=== PATIENT | female | born 1950 | race Caucasian/White ===

== ENCOUNTER 2018-02-02 08:30 | Outpatient (RCR) | payer MEDICARE, OTHER, SELFPAY ==
--- NOTE | 2018-02-02 09:10 | BH.SGPN.GN ---
Behaviors/Verbalizations/Mental Status: [] Pt eye contact fair, casually dressed, motor activity appropriate, speech normal rate and tone, mood anxious, congruent affect, thoughts linear and logical, no evidence of delusions or hallucinations. Reviewed client?s symptom tracker, no signs of suicidal ideation, plan, or intent as of today. Client Response/Progress/Benefit: [] Client shared she really appreciated the other group members being open about her problems and stressors because client could relate to a lot of the problems or issues others are going through. Client reported feeling extremely anxious given today is her first day in the IOP program. Client reported she never thought she could do in IOP program because the idea of group therapy makes her anxious, however recognizes she needed to take some steps forward to help her get better. Client seemed benefit from support from peers. No progress noted given today is patient's first day in program. Client to continue IOP level of care to decrease depression, improve daily functioning and prevent decompensation. Narrative Note: []
--- NOTE | 2018-02-02 10:22 | BH.SGPN.GN ---
Behaviors/Verbalizations/Mental Status: [Client eye contact fair, casually dressed, motor activity WNL - at times appearing restless AEB shaking leg, speech normal rate and tone - soft when speaking to the group at large, mood anxious, congruent affect, thoughts linear and logical, no evidence of delusions or hallucinations.] Client Response/Progress/Benefit: [Client new to IOP program and appeared anxious about being in the large group setting. She did well to actively listen to the discussion regarding the difficulties in manage change and emotions associated with the change process. CLient often nodded as fellow participants discussed their own emotional experiences such as fear, worry, feeling torn, or exhaustion when dealing with change. She noted that for her change is a high anxiety experience and shared fear of the unknown as her most common feeling associated with change. She displayed progress in her ability to engage with the group as the session progressed and Client volunteered to participate in the charade activity. Client benefitted from the supportive group environment as well as the psychoeducation provided. CLient recommended continued IOP tx to prevent decompensation and aid client in developing healthy strategies for improving mental health sx management.] Narrative Note: []
--- NOTE | 2018-02-02 11:29 | BH.SGPN.GN ---
Behaviors/Verbalizations/Mental Status: [Client eye contact remained clear and consistent, casually dressed, motor activity WNL, speech normal rate and tone, mood anxious, euthymic, congruent affect, thoughts linear and logical, no evidence of delusions or hallucinations. ] Client Response/Progress/Benefit: [Client responded well to session, displayed increased levels of comfort in engaging with the group compared to previous session. She was an attentive listener throughout group discussion. Client appeared to most benefit from the activity portion of session as evidenced by increased communication and involvement. Client worked collaboratively with the group to identify goals and problem solve strategies for adjusting to the changing environment or setbacks in accomplishing the group goal. Client benefitted from processing discussion in which clients made connections between the interventions and coping techniques used in the activity with their own lives. She indicated that she would benefit from challenging her self doubt and use of catastrophizing when facing the unknown. Client progress in ability to connect with the group and information discussed. Recommended continued IOP tx to prevent decompensation and improve mental health insight and awareness.] Narrative Note: []
--- NOTE | 2018-02-04 09:05 | BH.SGPN.GN ---
Behaviors/Verbalizations/Mental Status: []Client alert and oriented, neatly dressed and groomed. Eye contact good. Motor activity appropriate. Speech within normal limits. Affect constricted, mood anxious. Thoughts linear, logical, no signs of hallucinations or delusions. Reviewed clients symptom tracker, no risk for suicidal ideation, plan, or intent as of 02/04/18. Client Response/Progress/Benefit: []Client responded well to session, quiet, but nodding to comments made by peers and receptive to positive statements. Client reports feeling hopeful, positive, and anxious today as client shared seeing others' progress in IOP has given her hope for her own progress. However, client is anxious about not knowing coping skills and is worried she will not know how to manage her symptoms. The group gave client feedback, validating client's first week experience and told client to be patient the coping skills will come. Client stated hearing other people's stories and knowing she is not alone has been helpful so far in client's treatment. Client shared she has been struggling with anxiety and depression for a while and client reported belief her marriage issues contribute to her symptoms. Client appeared to benefit from gaining supportive feedback, words of encouragement, and validation from peers. Progress limited as it is client's first week in IOP, but client appears to be increasing comfort with peers and in the group setting. Client to continue IOP to prevent decompensation and reduce intensity of symptoms.
--- NOTE | 2018-02-04 10:30 | BH.SGPN.GN ---
Behaviors/Verbalizations/Mental Status: [] Pt eye contact good, casually dressed, motor activity appropriate, speech normal rate and tone, mood euthymic, congruent affect, thoughts linear and intact, no evidence of delusions or hallucinations. Client Response/Progress/Benefit: []Pt listened attentively to others and at times shared her thoughts and ideas with group. Pt appeared to connect with peers comments about change being difficult AEB pt nodding her head. Pt initially struggled with identifying barriers to making change, but with assistance was able to note several. Pt reported her barriers to change include: negative thinking, toxic relationship, poor boundaries, anger, isolation, and passive behavior. Pt identified difficulty setting boundaries to be the most problematic issue. Pt seemed to benefit from increased self-awareness of potential barrier that can get in way of progress. Narrative Note: []
--- NOTE | 2018-02-04 11:30 | BH.SGPN.GN ---
Behaviors/Verbalizations/Mental Status: [] Pt eye contact good, casually dressed, motor activity appropriate, speech normal rate and tone, mood anxious, congruent affect, thoughts linear and intact, no evidence of delusions or hallucinations. Client Response/Progress/Benefit: []Pt listened attentively to others and elicited help from others. Pt initially struggled with identifying what she could do for her 30 day plan, but eventually was able to identify reducing negative thinking. Pt reported her first goal is to identify at least 3 positives about herself daily. Pt shared another small goal is to identify 3 positives from her day. Pt shared her significant other tends to be extremely negative, so wants to limit the negativity by setting a boundary with him. Pt seemed to benefit from getting feedback from peers as well as identifying small goals to focus on throughout 30 day plan. Narrative Note: []
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
--- NOTE | 2018-02-04 14:59 | BH.MTP ---
Master Treatment Plan - Patient Information Program Physician:: Dr. Cook Primary Therapist:: Laura Colon - Psychiatric Diagnoses Psychiatric Diagnoses:: Major depressive disorder recurrent severe. Anxiety unspecified. Remote history of anorexia Diagnosis Code(s):: F 33.2 - Estimated LOS Estimated LOS (in weeks):: 6 Problem/Goal #1 - Problem/Goal #1 Stated Goal:: Client will reduce depression, feelings of hopelessness, and suicidal ideation due to Major Depressive Disorder through the Intensive Outpatient Program. Description of Barriers: Pt's distorted thought patterns, guilt for taking time for herself, limited support system, low self-confidence, and ruminations could be potential barriers to treatment. Functional Impact: Pt's mental health symptoms are impacting pt's social and familial functioning. Pt's anhedonia, lack of energy, and isolative behaviors impact her social functioning due to not engaging in the things she used to enjoy doing. Pt's increased irritability, negative thinking, and ruminations impacting her marriage. Pt not functioning at baseline. Goal Relevant Strengths/Supports: Pt is intelligent, hard working, and motivated to get better. - Objectives Objective #1 Stated Objective: Client will identify and replace 2-3 negative thinking patterns that contribute to depressive symptoms. Interventions: Assist the client in identifying, challenging, and replacing dysfunctional thoughts with positive self-enhancing thoughts. Discharge Criteria: Client will have achieved this goal when can identify at least 2 negative thinking patterns, replace thoughts with rational thoughts, and combat suicidal ideation. Target Date: 03/16/18 Review Date: 03/02/18 Objective #2 Stated Objective: Pt will decrease depressive symptoms AEB pts score on the DSM 5 cross-cutting measure. Interventions: Through groups and individual therapy, pt will be provided with education on cognitive distortions, mistaken beliefs, and identifying and combating negative self-talk. Therapist will assist pt with getting back into the activities she once enjoyed as well as increasing healthy coping strategies. Discharge Criteria: Pt will have met this goal when pts score on the DSM 5 cross cutting measure for depression has been decreased and daily functioning has improved per pt's report. Target Date: 03/16/18 Review Date: 03/02/18 Problem/Goal #2 - Problem/Goal #2 Stated Goal:: Stabilize anxiety level while increasing ability to function on daily basis. Description of Barriers: Pt's distorted thought patterns, guilt for taking time for herself, limited support system, low self-confidence, and ruminations could be potential barriers to treatment. Functional Impact: Pt's mental health symptoms are impacting pt's social and familial functioning. Pt's anhedonia, lack of energy, and isolative behaviors impact her social functioning due to not engaging in the things she used to enjoy doing. Pt's increased irritability, negative thinking, and ruminations impacting her marriage. Pt not functioning at baseline. Goal Relevant Strengths/Supports: Pt is intelligent, hard working, and motivated to get better. - Objectives Objective #1 Stated Objective: Client will learn and utilize 2-3 healthy coping strategies to manage anxious symptoms. Interventions: Therapist will assist client in learning internal coping strategies to manage anxious symptoms, along with helping client identify triggers. Discharge Criteria: Client will have achieved this goal when can verbalize and has practiced at least 2 healthy coping strategies. Target Date: 03/16/18 Review Date: 03/02/18 Objective #2 Stated Objective: Pt will decrease anxious symptoms AEB pts score on the DSM 5 cross-cutting measure. Interventions: Through groups and individual therapy, pt will be provided with education on anxious thought patterns, increased awareness to triggers, and learning calming/relaxation skills. Therapist will assist pt with getting back into the activities she once enjoyed as well as increasing healthy coping strategies. Discharge Criteria: Pt will have met this goal when pt's score for anxiety has decreased on the DSM 5 cross-cutting measure and daily functioning has improved per pt's report. Target Date: 03/16/18 Review Date: 03/02/18
--- NOTE | 2018-02-06 09:03 | BH.SGPN.GN ---
Behaviors/Verbalizations/Mental Status: [] Pt eye contact fair, casually dressed, motor activity restless, speech normal rate and tone, mood anxious, congruent affect, thoughts linear and logical, no evidence of delusions or hallucinations. Reviewed client?s symptom tracker, no signs of suicidal ideation, plan, or intent as of today. Client Response/Progress/Benefit: []Pt shared she is a embarrassed with the way she acted last night with her . Pt reported when watching a movie with her she was trying to engage him in conversation, but he told her he was reading and didn't want to talk. Pt shared she became upset, left the room and didn't talk to him the rest of the night. Pt reported she recognizes she was overreacting, but reports her feelings were hurt however didn't communicate that in the best way. Pt shared this morning she meditated which helped her feel peaceful and had a positive effect on the rest of the morning with her . Pt continues to struggle with managing her emotions in the moment, which tends to have negative impact on relationship. Pt to continue IOP level of care to stabilize moods, improve daily functioning, and prevent decompensation. Narrative Note: []
--- NOTE | 2018-02-06 11:20 | BH.SGPN.GN ---
Behaviors/Verbalizations/Mental Status: []Client alert and oriented, neatly dressed and groomed. Eye contact good. Motor activity appropriate. Speech within normal limits. Affect congruent, mood anxious. Thoughts linear, logical, no signs of hallucinations or delusions. Client Response/Progress/Benefit: []Client responded well to session, participating in activity, providing good insight. Client stated it is important for her to put energy into the stressors in her control and accept the stressors out of her control as client recognizes when she focuses on stressors out of her control I never win. Client identified personal stressors in her control as managing emotions, depression, relationships, and anxiety. Client helped peers develop strategies for reducing stress including avoiding negative people, taking breaks and managing emotions, radical acceptance, making small goals, and challenging negative thoughts. Client appeared to benefit from gaining additional strategies to manage stress. Client to continue IOP to prevent decompensation and increase emotional regulation.
--- NOTE | 2018-02-06 11:44 | BH.NA ---
Physical Data - Height/Weight Height: 1.57 m Weight:: 55.338 kg Weight in Pounds: 122.0 lbs Current Medication Compliance - Medication Compliance Do you take your medication as prescribed?: No Do you need assistance with taking medication?: No Have you had side effects from medication?: No Nutritional History - Appetite Nutritional Instructions:: If client shows signs of a swallowing problem, weight change of 10 pounds or more in the last month, or is on a diabetic diet, the physician will review and request a dietitian consult, as appropriate. All unintentional weight loss will be referred to the physician for decision on need for dietitian consult. Describe your appetite:: Good Have you noticed a change in your eating habits lately?: No Additional nutritional information:: 1-2 caffeinated beverages daily Functional Assessment - Sleep Pattern Describe any problems with sleeping: Denies difficulty falling or staying asleep, but thinks she does not sleep long enough. - Activities Motor Activity:: Functional Sensory/Communication Assess - Hearing Problems Do you have any hearing problems?: Adequate - Communication Problems Do you have difficulty understanding what people are saying?: No Do you have trouble putting your thoughts into words or expressing what you want to say?: No Do people ever have trouble understanding what you say?: No What is your primary language?: Wolof Learning Assessment - Learning Barriers Learning Barriers:: Ready to learn Medical Problems/History - Metabolic Conditions Metabolic: Hypothyroidism - Pain Assessment Do you have acute or chronic pain?: No - Female Reproductive Do you think you may be ?: No Number of pregnancies:: 2 Number of children:: 2 Have you reached menopause?: Yes Do you have any history of breast disease?: No Substance Abuse - Substance Abuse Please describe substance abuse in the last 30 days:: Social ETOH use. Never tobacco or illicit substance use. Mental Status Summary - Mental Status Significant Findings/Observations on Appearance and Mood:: Linn is an alert and oriented 67-year-old female who has appropriate grooming and hygiene, and is casually dressed. She is cooperative with interview and makes good eye contact. Speech is clear and of normal rate and volume. Mild depression and anxiety. Appropriate affect. Logical associations and normal process. No symptoms of delusions. Denies hallucinations, SI, and HI. Suicide Assessment - Suicidal Ideation Are you currently or have you been suicidal in the past?: No Physician Notification: If Active suicidal thoughts/Will not contract for safety is checked, contact physician and document in the Physician Notification section below. Assault History/Potential - History of Assault Do you have a history of assaulting someone?: No Physician Notification: If yes, notify physician and document notification date and time below. Fall Risk Assessment - Age Age: 60-70 - Mental Status Mental Status: Willing & able to ask for assistance when needed - Physical Status Physical Status: No problems - Impairments Impairments: None - Elimination Elimination: Continent AND independent - Gait or Balance Gait or Balance: Walks independently - Hx of Falls History of falls in the past 6 months: No known history - Medications/Substances Psychotropics:: Antidepressants Medications/substances used within the past 24 hours or ordered to administer: 1-2 of the medications/substances listed above - Total Score Total Points:: 2 Physician Notification - Physician Notification Physician Notified: Angela Cook Method of Notification: Face to Face Comments: treatment planning discussion RN Summary of Impressions - Impressions Recommendations: Include psychiatric and medical issues, treatment planning recommendations, and discharge planning needs. Impression: General Medical Conditions: hypothyroid - Level of Care How do the client's current symptoms and functional deficits support need for this level of care?: Linn endorses increased mental health symptoms recently, she is unsure of the timeline of her decline, but notes that it started shortly after she retired. She is feeling that she lacks a sense of purpose. She has not responsed to individual counseling. Client describes low energy and decreased social engagement. She denies SI, but has had passive thoughts of , wishing that would not wake up some days. Linn feels that she has limited support and that most people will not understand her. IOP will promote gains and socialization while preventing further decompensation.
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
--- NOTE | 2018-02-06 14:22 | BH.DR.ITP ---
Initial Treatment Plan - Patient Information Visit Information: ADMISSION DATE: EXPECTED LOS: 4-6 weeks Diagnoses:: Major depressive disorder F 33.2 - Problems/Symptoms Problem #1:: Depression Symptom:: Sad mood, anhedonia, isolative behavior, decreased appetite, thoughts of Problem #2:: Anxiety Symptom:: Rumination
--- NOTE | 2018-02-09 09:05 | BH.SGPN.GN ---
Behaviors/Verbalizations/Mental Status: [Client maintained consistent eye contact, casually and appropriately dressed, motor activity appropriate, speech normal rate and tone, mood euthymic,anxious - client described feeling hopeful, affect congruent, thoughts linear and logical, no evidence of delusions or hallucinations. Therapist reviewed clients symptom tracker to assess for intensity of mental health symptoms and identify risk for suicide. No signs of suicidal ideation, plan, or intent to date.] Client Response/Progress/Benefit: [Client responded positively and receptively to session, engage throughout and asking questions of follow participants. She indicated appreciating the shared experience of the group that she is able to relate to many of the frustrations and symptoms follow participants were discussing throughout. Briefly discussed specifically relating to another participant who it discussed a strained relationship with her daughter and indicated struggling to come to terms with the fact that she and her own daughter have been estranged for the last 20 years. She went on to discuss having to make the realization that all she could do is reach out and help her daughter responds positively. Client further discussed having a good weekend despite an incident in which she and her had planned to go out to dinner however canceled plans shortly before they were supposed to leave. She shared that had initially really upset her and caused her to want to return to old ways of coping. She discussed telling her that he is depressed and isolating however she did well to take a step back and remind herself to calm down before reacting. Client indicated that instead she went to her room and meditated which she found to be helpful. She went on to share that later on her came to her and they were able to resolve things and ended up going out to dinner. Client continues to benefit from the structured and encouraging environment of the group and is beginning to display progress in her ability to apply some of the treatment concepts learned to her own mental health and daily living. Client recommended continued IOP to maintain stability and promote ongoing progress with mental health symptom management.] Narrative Note: []
--- NOTE | 2018-02-09 10:35 | BH.SGPN.GN ---
Behaviors/Verbalizations/Mental Status: []Client alert and oriented, neatly dressed and groomed. Eye contact good. Motor activity appropriate. Speech within normal limits. Affect constricted, mood anxious. Thoughts linear, logical, no signs of hallucinations or delusions. Client Response/Progress/Benefit: []Client responded well to session, participating when prompted. Client appeared to connect with the quote sharing, I have to remind myself that things arent impossible. Client shared coming to IOP seemed impossible, but client has been able to adjust. Client nodded in agreement with peers that having an impossible mindset can cause a person to not try strategies that might be helpful. Client participating in activity, passive and not sharing her ideas. Client reported I thought we werent going to be able to do it. Client stated using supports, different peoples ideas, and a positive outlook helped the group. Client appeared to benefit from recognizing the consequences of viewing situations as impossible. Client seems to be progressing with increasing awareness of warning signs and negative thoughts, but client continues to report difficulty managing anxiety and problems with her . Client to continue IOP to prevent decompensation and increase mood stability.
--- NOTE | 2018-02-09 11:32 | BH.SGPN.GN ---
Behaviors/Verbalizations/Mental Status: []Client alert and oriented, neatly dressed and groomed. Eye contact good. Motor activity appropriate. Speech within normal limits. Affect constricted, mood anxious. Thoughts linear, logical, no signs of hallucinations or delusions Client Response/Progress/Benefit: []Client responded well to session, participating in discussion. Client appeared to connect with growth versus fixed mindset, sharing Zoe had some of those fixed mindset thoughts which in the past has increased clients self-doubt. Client helped the group process the benefits of growth mindset and identified ways to work towards a growth mindset. Client reported she viewed IOP with a fixed mindset at first, but she has been able to challenge her perspective. Client able to identify internal and external resources that can help client overcome current barriers of anxiety, depression, and negative thinking such as positive self-talk, thought challenging, and setting small goals. Client appeared to benefit from learning about growth mindset and increasing awareness of internal and external resources that may help client overcome barriers. Client seems to be progressing as shown by her increased engagement and insight during group session, but client continues to struggle with a depressed mood and negative thoughts.
== END 2018-02-10 23:59 ==
LOC: BHIOP 08:30
PROVIDERS: Visit Provider Psychiatry & Neurology Psychiatry
DX: F33.2 Major depressive disorder, recurrent severe without psychotic features (principal); F41.9 Anxiety disorder, unspecified; Z79.899 Other long term (current) drug therapy; E03.9 Hypothyroidism, unspecified
CPT/HCPCS: H0035; 90853

== ENCOUNTER 2018-02-11 09:00 | Outpatient (RCR) | payer MEDICARE, OTHER, SELFPAY ==
--- NOTE | 2018-02-11 09:05 | BH.SGPN.GN ---
Behaviors/Verbalizations/Mental Status: []Client alert and oriented, neatly dressed and groomed. Eye contact good. Motor activity appropriate. Speech rambling at times. Affect full, mood euthymic, anxious. Thoughts linear, logical, no signs of hallucinations or delusions. Reviewed clients symptom tracker, no risk for suicidal ideation, plan, or intent as of 02/11/18. Client Response/Progress/Benefit: []Client responded well to session, able bounce back from a confrontational comment made by a peer. Client also provided supportive feedback to a peer who was struggling with loneliness. Client reports feeling happy but apprehensive today as client stated she is glad things are going better, but is waiting for the bad thing to happen and be worse. Client was receptive to discussion of challenging negative thoughts that keep client from enjoying the moment and progress. Client shared she and her have been getting along better since client started IOP. Client contributes the improved relationship to client managing her emotions better and using better communication. Client appeared to benefit from reflecting on positives and challenging negative thoughts in the moment. Client seems to be progressing with implementing coping strategies, but continues to struggle with challenging negative thoughts and managing anxiety.
--- NOTE | 2018-02-11 10:18 | BH.SGPN.GN ---
Behaviors/Verbalizations/Mental Status: [Client alert and orient x3, maintained good eye contact, casually dressed, motor activity WNL, speech normal rate and tone, mood euthymic and positive, anxious, affect congruent, thoughts linear and logical, no evidence of delusions or hallucinations. ] Client Response/Progress/Benefit: [Client responded well to session and was actively engaged throughout. She did well to participate in both the discussion and activity portions of the group. Client indicated identifying with the group topic of avoiding pitfalls and discussed how one's choices to manage negative life events can impact whether or not they fall into a pitfalls and ultimately have consequences on their overall mental health. Client shared connecting with fellow participants reflections of the various pitfalls that they tend to fall into and indicated I struggle with making healthy choices as ago along life's 'bumpy road'. She was an active participant in the activity portion and did well to identify how the various struggles encountered in the pitfalls activity relate to struggles with the face when attempting to avoid her own personal pitfalls. Client discussed specifically connecting with the need to take a step back and re-collect herself when shock hits or something unexpected occurs. She is displaying progress in her ability to internalize treatment concepts and is actively applying them to her daily life. Recommended continued maintain stability and further improve mental health management and consistency of skills application.] Narrative Note: []
--- NOTE | 2018-02-11 11:19 | BH.SGPN.GN ---
Behaviors/Verbalizations/Mental Status: [Client alert and orient x3, good eye contact, casual dress, motor activity WNL - at times restless and moving around in chair, speech normal rate and tone, mood euthymic and anxious, congruent affect, thoughts linear and logical, no evidence of delusions or hallucinations.] Client Response/Progress/Benefit: [Client receptive of session and actively engaged throughout. She did well to connect with the group discussion on identifying and practicing strategies for coping with and preventing personal pitfalls in order to better understand what strategies are most helpful for the individual. Client did well to reflect upon some of her own personal pitfalls and described struggling with catastrophizing, mind reading, poor boundaries, fixed mindset, guilt and feeling responsible for fixing others emotions, and negative thinking. She benefitted from brainstorming what potential coping strategies may be helpful in improving management of mental health sx and preventing falling into personal pitfalls. Client discussed that she believes setting up heathy boundaries, using her supports, and reminding herself that she deserves to get help will aid in preventing falling into pitfalls. Client showing progress in her ability to begin seeing the benefit of applying tx concepts and skills discussed and is improving with levels of insight. Client recommended continued IOP tx to prevent decompensation and continue to make gains in symptom management.] Narrative Note: []
--- NOTE | 2018-02-11 15:56 | BH.MDN ---
Multi-Disciplinary Note - Note 30-min Individual Time Started:: 12:20 Date: 02/11/18 Eye Contact:: Fair Motor Activity:: Appropriate Appearance:: Neat Speech:: Appropriate, Other - slow to speak at times Mood:: Euthymic, Anxious Affect:: Full, Congruent Thoughts:: Linear, Logical, No evidence of hallucinations/delusions noted Time Stopped:: 12:50
--- NOTE | 2018-02-13 09:05 | BH.SGPN.GN ---
Behaviors/Verbalizations/Mental Status: []Client alert and oriented, neatly dressed and groomed. Eye contact good. Motor activity relaxed. Speech within normal limits. Affect congruent, mood anxious, euthymic. Thoughts linear, logical, no signs of hallucinations or delusions. Reviewed clients symptom tracker, no risk for suicidal ideation, plan, or intent as of 02/13/18. Client Response/Progress/Benefit: []client responded well to session, providing supportive statements to peers. Client reports feeling hopeful and anxious today as she is seeing progress, but has what if thinking at times that makes client feel anxious her progress will end. Client processed her thoughts with the group and was given positive feedback on progress isn't linear. Client identified her positives as realizing self-care in important my mental health has to come first and listing affirmations in the morning and evening to help client focus on positives. Client reported she continues to struggle with fear of failure and negative thinking. Client appeared to benefit from challenging negative thoughts in the moment. Progress noted as shown by clients report of using her 30-day plan. Client to continue IOP to prevent decompensation and reduce negative thinking
--- NOTE | 2018-02-13 10:18 | BH.SGPN.GN ---
Behaviors/Verbalizations/Mental Status: [Client alert and orient x3. She maintained good eye contact throughout, casually and appropriately dressed, motor activity WNL, speech normal rate and tone, mood dysthymic, anxious - some use of sarcasm and self-deprecating talk, congruent affect, thoughts linear and logical, no evidence of delusions or hallucinations.] Client Response/Progress/Benefit: [Client actively engaged in a willing participant throughout. She did well to work collaboratively with fellow participants in discussing the implications of goal setting on ones mental-health progress. Client identified that setting goals helps to keep you motivated and on track. Client shared at times struggling with following through with goals or knowing how to create smaller goals in order to achieve the larger goal. Client benefited from reviewing SMART (Specific, Measurable, Achievable, Realistic, Timely) goal criteria and participating in the activity in which clients were able to practice setting small goals in order to reach their larger goal utilizing the SMART criteria. Client at times used sarcasm or self-deprecating talk when the group appeared to struggle with achieving their set goals, however made progress in her ability to respond to fellow participant encouragement and become more positive as a result. Client recommended continued IOP treatment in order to further improve symptom management and healthy communication with supports as well as preventing compensation at this time.] Narrative Note: []
--- NOTE | 2018-02-13 11:27 | BH.SGPN.GN ---
Behaviors/Verbalizations/Mental Status: [Client alert and orient x3, maintained good eye contact throughout - at times scanning the room, casually dressed, motor activity restless AEB client shaking leg and shifting in chair. Her speech was normal rate and tone, mood dysthymic and anxious, congruent affect, thoughts linear and logical, Some evidence of rumination, no evidence of delusions or hallucinations.] Client Response/Progress/Benefit: [Client engaged throughout and appearing to be more positive than previous session. She did well to work within the small group setting on identifying individual Smart goals to aid in treatment progress and management of mental health symptoms. Client appeared to have some difficulty in applying the smart goal criteria when identifying a goal for this weekend however the assistance from follow participants was able to identify a goal of communicating with her her mental health needs once per day over the weekend. Client benefited from working with the group on identifying solutions for potential obstacles or setbacks when trying to accomplish this goal. She displayed progress in her ability to connect with materials and indicated that she might be able to use positive affirmations to overcome self-doubt or lack of motivation. Client recommended continued IOP treatment in order to prevent decompensation and further improve client insight and ability to manage mental health symptoms and better regulate emotions.] Narrative Note: []
--- NOTE | 2018-02-16 09:05 | BH.SGPN.GN ---
Behaviors/Verbalizations/Mental Status: []Client alert and oriented, neatly dressed and groomed. Eye contact good. Motor activity appropriate. Speech rambling at times. Affect incongruent at times as client smiles to mask anxiety, mood anxious. Thoughts linear, logical, no signs of hallucinations or delusions. Reviewed clients symptom tracker, no risk for suicidal ideation, plan, or intent as of 02/16/18. Client Response/Progress/Benefit: []Client responded well to session, providing supportive statements and receptive to praise from peers. Client reports feeling anxious and hopeful today as client had a setback this of feeling depressed which led to negative thinking and feeling uneasy about her progress. With therapist gently challenging, client recognized she actually has made progress, but it is taking time. Client stated she is hopeful for her family session Friday as client would like her to gain more insight of what will help client's mental health. Client shared she accomplished her goal for the weekend and set a boundary with her . Client reported she told her it would help her if he was not as negative around client. Client received support and advice on boundary setting from peers. Client appeared to benefit from connecting with peers and learning about grounding techniques. Progress noted as shown by client's report of setting boundaries, but continues to struggle with negative thinking, unrealistic expectations, and managing depressive symptoms. Client to continue IOP to prevent decompensation and increase emotional regulation.
--- NOTE | 2018-02-16 10:25 | BH.SGPN.GN ---
Behaviors/Verbalizations/Mental Status: [] Pt eye contact good, casually dressed, motor activity appropriate, speech normal rate and tone, mood anxious, congruent affect, thoughts linear and intact, no evidence of delusions or hallucinations. Client Response/Progress/Benefit: [] Client contributed to discussion and listened attentively to others. Client reported she could relate to the quote because she recognizes at times she believes she is communicating but in reality she is using her behavior and not her words to communicate to her what she wants. Client reports sometimes she expects her to be able to read my mind and at the time thinks she successfully communicated but recognizes is not effective communication. Client listened and added some comments to discussion of the 4 different types of communication styles. Client connected with the passive and passive aggressive style of communication that she utilizes most often. Client able to connect how being passive or passive-aggressive negatively impacts her relationships and does not get her needs met consistently. Client stated benefit from learning about the 4 different styles of communication as well as identifying benefits and cost to each style. Narrative Note: []
--- NOTE | 2018-02-16 11:25 | BH.SGPN.GN ---
Behaviors/Verbalizations/Mental Status: [] Pt eye contact good, casually dressed, motor activity appropriate, speech normal rate and tone, mood euthymic, congruent affect, thoughts linear and intact, no evidence of delusions or hallucinations. Client Response/Progress/Benefit: [] Client active participant as evidenced by contributed to discussion and attentive to others. Client worked cooperatively with peers to complete challenge activity with the focus on utilizing effective communication skills. Client connected with others that there is a lot of challenges to communicating effectively and is important to focus on how one communicates and being specific and clear in the message. Client identified her goal is to directly communicate to her what upset her this morning. Client elaborated this morning her did something that really upset her and decided communicating to him what was wrong she just left and came to IOP. Client recognizes by not communicating what was bothering her will only make her feel more frustrated and her will not understand why and not be of do anything about it. Client seemed to benefit from increased awareness of how current way of communicating is not helping her move forward. Pt to continue IOP level of care to increase emotional regulation and prevent decompensation. Narrative Note: []
--- NOTE | 2018-02-18 09:05 | BH.SGPN.GN ---
Behaviors/Verbalizations/Mental Status: []Pt alert and oriented. Casually dressed and appropriately groomed. Mood euthymic, affect congruent. Speech tone and rate WNL. Thoughts linear and logical. Motor activity appropriate. No evidence of delusions or hallucinations. Reviewed clients symptom tracker, no risk for suicidal ideation, plan, or intent as of 02/18/18. Client Response/Progress/Benefit: Pt reported on Friday she was upset with her and recognizes her reaction did not meet the situation. Pt shared her goal was to communicate to her what made her so upset. Pt shared she explained to her how she felt, reported it helped the situation. Pt reported she has been taking walks with her in the park which she identifies as helpful. Pt reported she's been practicing grounding and mindfulness tools to manage her anxiety. Pt demonstrating progress with generalizing healthy coping skills and improved communication with . Pt to continue IOP level of care to maintain gains and prevent decompensation. Narrative Note: []
--- NOTE | 2018-02-18 10:21 | BH.SGPN.GN ---
Behaviors/Verbalizations/Mental Status: [[Client alert and orient x3. She maintained clear and consistent eye contact, casually dressed, motor activity within normal limits -at times restless as client appeared to frequently be shifting in seat, speech normal rate and tone, mood euthymic and anxious, often doubting self or second guessing input provided, affect congruent, thoughts linear and logical - some evidence of ruminative anxiety, no evidence of delusions or hallucinations.] Client Response/Progress/Benefit: [Receptive of session and actively engaged throughout. She appeared to connect well with the quote for today's topic on managing crisis. Client reflected that although it can be difficult at times to view crisis as potentially eye-opening experience she has had various incidents in her own life in which he was able to learn and grow difficult situations. Client worked with fellow participants on identifying various ways in which we may become more resilient and empathetic through hardships. Client identified in her own life she experiences crisis as a big black hole in which it feels as though she has afraid nerves and muscle tension. Client shared think hopeful that to the IOP program she will learn new strategies for better managing her warning signs and triggers in order to prevent crisis escalation. Client benefited from shared experiences discussed by fellow participants and indicated being able to connect with them client displaying progress in her willingness and ability to openly engage with the group. Recommended continued IOP treatment in order to maintain stability as well as further improve client levels of insight regarding mental health symptoms.] Narrative Note: []
--- NOTE | 2018-02-18 11:24 | BH.SGPN.GN ---
Behaviors/Verbalizations/Mental Status: [Client alert and orient x3. She maintained clear inconsistent eye contact, casually dressed and appropriately groomed, motor activity within normal limits, speech normal rate and tone, mood anxious, euthymic, affect congruent, thoughts linear and logical -some indication of ruminative, no evidence of delusions or hallucinations.] Client Response/Progress/Benefit: [Responded well to session, actively engaged in both discussion and activity throughout. Client did well to complete the warning sign identification prompt in which participants were given a list of potential warning signs for decompensation and asked to identify those they relate to. Client indicated relating to feeling overwhelmed and restless, felt tension, and shutting down. She did well to identify specific examples in which she experienced these warning signs in the past. Client displaying progress in her ability to associate treatment content with her own mental health and begin applying strategies learned. Client benefited from the activity in which participants created their own individual crisis management kits expressed including a heart in her kit to remind her to love myself and make myself a priority. client recommended continued IOP treatment in order to further treatment progress inconsistent use of coping skills identified as well as improve healthy communication and boundaries with supports.] Narrative Note: []
--- NOTE | 2018-02-18 15:57 | BH.MDN ---
Multi-Disciplinary Note - Note Family Time Started:: 12:30 Date: 02/18/18 Eye Contact:: Fair Motor Activity:: Appropriate Appearance:: Neat Speech:: Soft Mood:: Anxious Affect:: Full Thoughts:: Linear, Logical, No evidence of hallucinations/delusions noted Time Stopped:: 13:15
--- NOTE | 2018-02-20 09:06 | BH.SGPN.GN ---
Behaviors/Verbalizations/Mental Status: []Pt alert and oriented. Casually dressed and appropriately groomed. Mood euthymic, affect congruent. Speech tone and rate WNL. Thoughts linear and logical. Motor activity appropriate. No evidence of delusions or hallucinations. Reviewed clients symptom tracker, no risk for suicidal ideation, plan, or intent as of 02/20/18. Client Response/Progress/Benefit: [] Client reported she went to get a new dryer with her and was able to communicate directly what she wanted store however compromise with her and selected the dryer that was less expensive and 1 her morning. However when it was time to purchase [employer]per surprised her by getting the dryer that client had initially chosen. Client reported this made her feel really positive and happy that her did something that was really thoughtful. Client shared her goal was to do 15 minutes of relaxation and she did so by going to the park with her . Client demonstrating progress with working on improving her communication skills which has a direct impact on her relationship and mood. Client to continue IOP level of care to stabilize mood and prevent decompensation. Narrative Note: []
--- NOTE | 2018-02-20 10:23 | BH.SGPN.GN ---
Behaviors/Verbalizations/Mental Status: []Client alert and oriented, neatly dressed and groomed. Eye contact good. Motor activity appropriate. Speech within normal limits. Affect congruent-incongruent smiling at times. Mood anxious, dysthymic. Thoughts linear, logical, no signs of hallucinations or delusions. Client Response/Progress/Benefit: []Client responded well to session, active participant. Client connected with the quote sharing boundaries are important, but I have a real hard time setting them. Client stated she struggles with setting boundaries because she fears other people will get upset with her. Client reported other barriers to setting healthy boundaries such catastrophizing, anxiety, and thinking others emotions are more important. Client identified potential benefits of boundaries such self-care, less stress, and making time for her mental health. Client helped the group discuss the different types of boundaries, porous, rigid, and flexible as well as the pros and cons to each. Client identified using porous boundaries as client has a hard time saying no and often thinks others emotions and thoughts are more important than hers. Client shared this leads to increased anxiety and depression. Client appeared to benefit from learning how boundaries impact mental health and identifying her boundary type. Client to continue IOP as she has progressed with implementing healthy coping skills, but continues to struggle with setting boundaries and challenging negative thoughts.
--- NOTE | 2018-02-20 11:21 | BH.SGPN.GN ---
Behaviors/Verbalizations/Mental Status: []Client alert and oriented, neatly dressed and groomed. Eye contact good. Motor activity appropriate. Speech rapid, otherwise within normal limits. Affect constricted, mood anxious, dysthymic. Thoughts linear, logical, no signs of hallucinations or delusions. Client Response/Progress/Benefit: []Client responded well to session, active participant. Client shared Zoe been waiting for the boundary group. Client created a visual representation of her current boundary style sharing, Zoe had an insight Im either all or nothing when it comes to boundaries. Client stated she normally lets too many people into her castle but then becomes overwhelmed and frustrated which results in client shutting everyone out. Client shared this all or nothing style keeps client stuck in a negative maintenance cycle of depression and impacts her relationships negatively. Client receptive to learning ways to set healthy boundaries and reported I have to remind myself my emotions and thoughts are not more important, but just as important as others. Client set a daily goal to promote boundary setting which was to schedule 15 minutes a day for something client enjoys. Client appeared to benefit from learning how to set healthy boundaries. Client to continue IOP to prevent decompensation and increase mood stability.
--- NOTE | 2018-02-20 14:00 | BH.MDN ---
Multi-Disciplinary Note - Note 45-min Individual Time Started:: 12:25 Date: 02/20/18 Eye Contact:: Fair Motor Activity:: Appropriate Appearance:: Casual Speech:: Appropriate Mood:: Euthymic Affect:: Congruent Thoughts:: Linear, Logical, No evidence of hallucinations/delusions noted Time Stopped:: 13:00
--- NOTE | 2018-02-23 09:10 | BH.SGPN.GN ---
Behaviors/Verbalizations/Mental Status: [] Pt eye contact fair, casually dressed, motor activity restless, speech normal rate and tone, mood anxious, congruent affect, thoughts linear and logical, no evidence of delusions or hallucinations. Reviewed client?s symptom tracker, no signs of suicidal ideation, plan, or intent as of today. Client Response/Progress/Benefit: [] Client reported my week and was up and down. Client shared she did not do her goal on Friday but did follow through with her goal on Friday by taking a 50 minute walk. Client shared on Friday she did try coloring for 15 minutes which she still unsure if she likes but is willing to give it another chance. Client reports she did become upset after coloring because her made a comment that was unsupportive in regards to patient coloring. Client shared she do not communicate her feelings to her about that situation. Client reported has been also made a comment about client being different, which client reported she chose not to respond at that time. Client should eventually she had a good conversation with her in which her recognizes perhaps he is the one that is changed because feeling frustrated that his summer has not been as good as he thought due to his knee injury. Client is starting to recognize the importance of being open and honest with her because often she feels a lot better when she communicates directly versus ignoring how she feels. Client shared she has been having some ruminating thoughts about her future and is concerned on how is going to insole lip turner. Progress noted with client practicing healthy coping skills and self-care, however is continuing to struggle with challenging her negative thoughts and communicating in the moment. Client to continue IOP level of care to stabilize mood, increase direct communication, and prevent decompensation. Narrative Note: []
--- NOTE | 2018-02-23 10:23 | BH.SGPN.GN ---
Behaviors/Verbalizations/Mental Status: [Client maintained good eye contact, casually and neatly dressed, motor activity restless fidgeting, speech normal rate and tone, mood euthymic, anxious, congruent affect, thoughts linear and intact, no evidence of delusions or hallucinations.]] Client Response/Progress/Benefit: [Pt listened attentively to others as well as actively contributing to discussion on conflict resolution. Able to identify the importance of ?fair fighting? and how ineffective communication during conflict can cause relationship stress. Pt identified she mostly connects to avoidant or accommodating style of conflict resolution when communicating with others, but is aggressive towards self at times, engaging in unrealistic expectations of self. Pt shared personal example regarding avoiding bringing up certain topics with her or using accommodation as a means of avoidance as she does not want to cause problems. Pt able to identify how avoiding conflict could be impacting her mental health and preventing from getting her needs met. Pt seemed to benefit from learning about the different conflict resolution styles and pros/cons of each. Progress in client levels of insight regarding own approach to conflict.] Narrative Note: []
--- NOTE | 2018-02-23 11:30 | BH.SGPN.GN ---
Behaviors/Verbalizations/Mental Status: [Client maintained good eye contact, casually and neatly dressed, motor activity restless, speech normal rate and tone, mood euthymic, congruent and bright affect, thoughts linear and intact, no evidence of delusions or hallucinations.]] Client Response/Progress/Benefit: [Pt receptive of session and collaborated well with others during challenge activity. Pt tended to balance agreeing with others ideas and comments as well as verbalizing her thoughts and opinions throughout the conflict activity. Pt initially did not identify why this is different in group than in daily life, however reflected that she feels more supported and safe in bringing up concerns/opinions in the group environment and not fearing rejection. Pt seemed to benefit from recognizing that fear of rejection impacts her ability to get own needs met in daily life and displaying progress in ability to brainstorm of healthy conflict resolution skills. Discussed plans to communicate her opinion/concerns using ?I? statements at least once today to improve assertive communication.] Narrative Note: []
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
--- NOTE | 2018-02-25 10:15 | BH.SGPN.GN ---
Behaviors/Verbalizations/Mental Status: []Pt alert and oriented, eye contact good, casually dressed, speech and tone WNL, mood anxious, affect constricted, thoughts linear and intact, no evidence of delusions or hallucinations. Client Response/Progress/Benefit: []Pt contributed to discussion and listened attentively to peers. Pt reported it's important to have social supports because without supports things are scarier when know have no one to fall back on. Pt reported she needs healthy supports for self care. Pt able to identify characteristics of healthy supports. Pt worked cooperatively with peers during activity and connected importance of communicating directly with supports what kind of support she needs. Pt seemed to benefit from increased awareness of characteristics of healthy supports. Narrative Note: []
--- NOTE | 2018-02-25 11:25 | BH.SGPN.GN ---
Behaviors/Verbalizations/Mental Status: [] Pt eye contact fair, casually dressed, motor activity appropriate, speech normal rate and tone, mood anxious, congruent affect, thoughts linear and logical, no evidence of delusions or hallucinations. Client Response/Progress/Benefit: [] Client to participate as evidenced by her sharing thoughts and feelings and attempted to others. Client shared she finds it most helpful in her supports demonstrate the show they care about her, or an advocate for her, and provide gentle reminders of what skills and strategies can be helpful. Client reported she would like to focus on increasing her spiritual type of support because it could lead to volunteer opportunities and gives her community that can provide many different types of support. Client shared her goal is to reach out via text or phone call to her friend and to her youngest sister. Client seemed benefit from learning about the different types of social support and focusing on what she can do to start to increase her supports. Client to continue IOP level of care to maintain gains, increase generalization of healthy skills, and prevent decompensation. Narrative Note: []
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
--- NOTE | 2018-02-27 09:05 | BH.SGPN.GN ---
Behaviors/Verbalizations/Mental Status: []Client alert and oriented, neatly dressed and groomed. Eye contact fair. Motor activity appropriate. Speech monotone, but overall within normal limits. Affect constricted, mood anxious, euthymic. Thoughts linear, logical, no signs of hallucinations or delusions-client appearing slow to process possibly due to ruminations. Reviewed clients symptom tracker, no risk for suicidal ideation, plan, or intent as of 02/27/18. Client Response/Progress/Benefit: []Client responded well to session, providing supportive statements to peers, receptive to feedback. Client reports feeling happy and calmer now that she made it to group and Im surrounded by support. Client shared the last few days she and her have not been feeling well physically, which has led to some communication roadblocks. Client received feedback from peers and reminded that communicating needs is more effective when both parties are steady and calm. Client shared she has been working on her personal goals of communicating with her and reaching out to supports. Client reported she accomplished part of her goal, but not all of it which client shares makes her feel like a failure. Therapist gently challenged client on her dichotomous thinking patterns and encouraged client to reflect on the accomplishments she did make. Client appeared to benefit from gentle challenging of negative thoughts and from receiving supportive statements. Client to continue IOP as she continues to struggle with using internal thought challenging coping skills to manage depression and anxiety.
--- NOTE | 2018-02-27 10:10 | BH.SGPN.GN ---
Behaviors/Verbalizations/Mental Status: []Client alert and oriented, neatly dressed and groomed. Eye contact fair. Motor activity appropriate. Speech within normal limits. Affect constricted, mood anxious and dysthymic. Thoughts linear, logical, no signs of hallucinations or delusions. Client Response/Progress/Benefit: []Pt attentive to others and shared her thoughts and ideas throughout group. Pt reported in her current reality she feels she is stuck in a pit, can't get out, hopeless and overwhelmed. Pt reported in current reality she is not moving forward, staying stagnant. Pt reported for her future reality she hopes to be out of the pit, feeling happy, and moving forward in life. Pt stated there are some rain clouds in the future because she recognizes there will be ups and downs life life, however in future reality wants to have the skills to deal with those ups and downs. Pt seemed to benefit from identifying future goal for self, focusing on where she sees herself in a positive light. Narrative Note: []
--- NOTE | 2018-02-27 11:10 | BH.SGPN.GN ---
Behaviors/Verbalizations/Mental Status: []Client alert and oriented, neatly dressed and groomed. Eye contact fair. Motor activity appropriate. Speech within normal limits. Affect constricted, mood anxious. Thoughts linear, logical, no signs of hallucinations or delusions. Client Response/Progress/Benefit: []Pt contributed positively to discussion and listened attentively to peers. Pt identified her barriers to desired reality to include: negative thinking, anxiety, depression, poor communication, little to no self-care, and difficulty setting boundaries. Pt identified negative thinking as her biggest barrier because her negativity can make it hard to set goals, impacts her confidence, and decreases motivation to try new things. Pt worked cooperatively with peers to identify strategies and skills to overcome the various barriers identified by the group. Pt reported her goal for the day is to reach out to her friend via text or call to increase her positive supports. Pt seemed to benefit from increased repertoire of skills and strategies to help with overcoming various barriers. Narrative Note: []
--- NOTE | 2018-02-27 11:16 | PCM.PN.BLA ---
Progress Note Patient is seen in follow-up for major depressive disorder recurrent severe of 33.2, anxiety unspecified and remote history of anorexia. History is been obtained per interview with patient, discussion with staff, review of chart. Case discussed with treatment team. Chief complaint-depression and anxiety Not too bad right now. Rough few days Interim history Patient reports overall mood improvement although she continues struggling with it. She continues to have some mild depressive symptoms but of decreased intensity and frequency. She continues to have moderate ruminative anxiety but notes that it is also of decreased intensity. She attributes her improvement to coping skills gained through IOP. She started Paxil 1 week ago but discontinued it due to nausea and fatigue 2 days ago. She reports her nausea and fatigue are now resolving. She previously tolerated Paxil but notes that it was at a younger age. She denies suicidal or homicidal ideation. She denies symptoms consistent with psychosis. She is sleeping from 10:30 PM to 5:30 AM on IOP days and 7 AM on other days. She has had nausea over the past few days which she associated with Paxil she denies vomiting or diarrhea. Her appetite is somewhat improved today. She denies intentional restriction for weight loss. Denies recent ingestion of alcohol. Mental status exam Alert and oriented . No acute distress. Ambulatory with normal gait and station. Appears stated age. Casually dressed and groomed. Appropriate hygiene. Cooperative with interview. Good eye contact. No psychomotor agitation or retardation. Mood depressed improved. Affect congruent. Speech is clear and with regular rate and rhythm. Language fluent. Thought process organized. Associations logical. Thought content significant for ruminative anxiety and themes of depression. No suicidal or homicidal ideation related or detected. No symptoms consistent with psychosis noted or detected. Immediate recent and remote memory grossly intact. Attention and concentration are fair. Estimated intelligence and fund of knowledge average. Judgment and insight improving. Diagnosis Major depressive disorder recurrent severe F 33.2 Anxiety unspecified Remote history of anorexia Plan Continue IOP as the structured setting is necessary to maintain gains and prevent decompensation. Patient will likely continue to benefit from IOP. Continue Deplin 15 mg daily. Continue gabapentin 300 mg 3 times daily. Discontinue Paxil due to side effects. Other antidepressant options discussed with patient including Remeron. Patient declines other medications at this time. Encourage follow-up with outpatient psychiatric provider. Encourage follow-up with primary care physician. 16 minutes of Insight oriented psychotherapy provided. Patient acknowledges understanding and is in agreement with plan. Feels able to maintain safety. Agrees to seek help or emergency care feeling unsafe to self or others.
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
--- NOTE | 2018-03-02 10:10 | BH.SGPN.GN ---
Behaviors/Verbalizations/Mental Status: []Client alert and oriented, neatly dressed and groomed. Eye contact fair. Motor activity appropriate. Speech within normal limits. Affect constricted, mood euthymic, anxious. Thoughts linear, logical, no signs of hallucinations or delusions. Client Response/Progress/Benefit: []Client responded well to session, providing positive contributions to discussion. Client seemed to connect with the quote sharing, there are external stressors in life, but we are sometimes the ones that keep ourselves stuck. Client went on to say that it is empowering knowing she has built up her own rodgers, because then you can actually do something about it. Client engaged in discussion of what keeps people trapped from obtaining mental wellness. Client shared fear of outcomes, fear of failure, family, and negative thinking keeps people trapped. Client shared connecting with the discussion on how maintenance cycles are created and how they can be broken. Client identified negative thoughts that have kept client trapped as what if things get worse, Im going to fail, Im so stupid and insensitive, what if my doesnt like me volunteering. Client appeared to benefit from learning how negative thoughts can keep a person trapped. Client seems to be progressing as evidenced by her report of believing her negative thoughts less than she did when client started IOP. Client to continue IOP as she continues to report high anxiety with setting boundaries and using assertive communication.
--- NOTE | 2018-03-02 11:15 | BH.SGPN.GN ---
Behaviors/Verbalizations/Mental Status: []Client alert and oriented, neatly dressed and groomed. Eye contact good. Motor activity appropriate. Speech monotone, otherwise within normal limits. Affect congruent, mood anxious. Thoughts linear, logical, no signs of hallucinations or delusions. Client Response/Progress/Benefit: []Client responded well to session, active participant and contributing positively. Client identified my wont like me volunteering as the thought keeping her most stuck. Client reported this thought is unrealistic and realistic. Realistic as client stated it is possible for her to be upset, but unrealistic because client is predicting the future and in the past her has been supportive. Client stated when she thinks this thought she becomes sad, isolates, and feels trapped from doing things she wants to. Client reframed her thought to a positive, more realistic thought of this might be the case, but I have coping skills and I know it would help me. Client helped the group create a list of strategies to challenge negative thoughts such as looking at the evidence, telling ones stop when ruminating, and asking oneself what they would tell a friend. Client appeared to benefit from challenging a negative thought keeping client stuck and receiving supportive feedback from peers. Client progressing as shown by her report of actively using healthy coping skills and challenging negative thoughts, but client continues to struggle with putting others needs before her own which may hinder progress.
--- NOTE | 2018-03-02 15:19 | BH.TPR ---
Treatment Plan Review Date of Admission:: 02/02/18 Date of Treatment Plan Review:: 03/02/18
--- NOTE | 2018-03-04 09:03 | BH.SGPN.GN ---
Behaviors/Verbalizations/Mental Status: [Client maintained consistent eye contact throughout, she was casually dressed and appropriately groomed, motor activity within normal limits, client speech normal rate - soft tone, mood euthymic, expressed as hopeful, affect congruent, thoughts linear and logical, no evidence of delusions or hallucinations. Therapist reviewed clients symptom tracker to assess for intensity of mental health symptoms and identify risk for suicide. No signs of suicidal ideation, plan, or intent to date.] Client Response/Progress/Benefit: [Client open to session and engaged in the process group discussion. Client discussed feeling as though she could identify with various participants who discussed not feeling understood or supported by their support. Client indicated that she is still learning to use consistency with her boundaries and not allow the sometimes negative responses provided by her supports to prevent client from utilizing the skills she knows are helpful. Client provided an example in which she had previously used coloring as an effective means of coping but ceased to do so after a negative response from her . Indicated that she is able to see positive progress in her levels of confidence and feels as though she is gaining an increase ability to advocate for her own needs. She discussed feeling hopeful said that this is her fifth week in the program and finds that she is beginning to really see improvements in her overall mental health and well-being. Benefited from discussing areas of progress with the group and indicated identifying an increase in her ability to challenge the negative or pessamistic thoughts she often has. CLient shared experiencing decreased [id number] thinking but continues some bad days. Client commended continued IOP treatment in order to maintain ability as well as continue to increase consistency of application of skills learned.] Narrative Note: []
--- NOTE | 2018-03-04 10:17 | BH.SGPN.GN ---
Behaviors/Verbalizations/Mental Status: []Client alert and oriented, neatly dressed and groomed. Eye contact fair. Motor activity appropriate. Speech within normal limits. Affect constricted, mood anxious. Thoughts linear, logical, no signs of hallucinations or delusions. Client Response/Progress/Benefit: []Client responded well to session, less active in discussion than previous groups, but client participating when prompted. Client reported coping skills are what help us get through hard times and manage emotions. Client shared one learns coping skills from family, friends, and professionals. Client stated since starting IOP she is using healthy coping skills more consistently, but Im a work in progress. Client was passive at times during the activity but did provide input. Client reported it is important to have a variety of coping skills both internal and external so that one can be sturdy and manage hardships. Client shared she is improving her internal coping skills, but still needs to increase her positive external supports. Client appeared to benefit from increasing awareness of her healthy and unhealthy coping skills and of the benefits of having a balance of internal and external coping skills. Clients seems to be progressing as shown by her report of increased consistency with using healthy coping skills to manage anxiety and negative thinking, but client reports ongoing difficulty with people pleasing and setting boundaries. Client to continue IOP to prevent decompensation and increase self-esteem.
--- NOTE | 2018-03-04 11:25 | BH.SGPN.GN ---
Behaviors/Verbalizations/Mental Status: []Client alert and oriented, neatly dressed and groomed. Eye contact fair. Motor activity appropriate. Speech monotone, otherwise within normal limits. Affect constricted, mood euthymic, anxious. Thoughts linear, logical, no signs of hallucinations or delusions. Client appears to take a longer time to process information at times as evidenced by her delayed responses. Client Response/Progress/Benefit: []Client responded well to session, providing coping skill ideas. Client able to identify healthy and unhealthy coping skills she has used in the past to regulate emotions and mental health. Client shared she has been actively challenging negative thoughts which has been helping improve her mood, but it hasnt been easy. Client helped the group create a list of coping skills for the five categories of coping skills- distraction, emotional release, grounding, self-love, and thought challenging. Client stated that each category has pros and cons, so it is important to use a variety of coping skills instead of relying on one. Client reported she uses grounding and thought challenging most often and would like to improve her use of self-love. Client reported willingness to try the following new coping skills: using a stress ball, guided imagery, coloring, and writing down thoughts are just thoughts. Client appeared to benefit from increasing her repertoire of healthy coping skills and learning the importance of using a variety of coping skills. Client progressing as evidenced by her report of consistent use of healthy coping skills, but can continue to benefit from IOP to reduce anxiety and improve boundaries.
--- NOTE | 2018-03-04 15:58 | BH.MDN ---
Multi-Disciplinary Note - Note 30-min Individual Time Started:: 12:20 Date: 03/04/18 Eye Contact:: Fair Motor Activity:: Appropriate Appearance:: Casual Speech:: Appropriate Mood:: Euthymic Affect:: Congruent Thoughts:: Linear, Logical, No evidence of hallucinations/delusions noted Time Stopped:: 12:50
--- NOTE | 2018-03-06 09:03 | BH.SGPN.GN ---
Behaviors/Verbalizations/Mental Status: []Client alert and oriented, neatly dressed and groomed. Eye contact fair. Motor activity appropriate. Speech monotone otherwise within normal limits. Affect constricted, mood euthymic, anxious. Thoughts linear, logical, no signs of hallucinations or delusions. Reviewed clients symptom tracker, no risk for suicidal ideation, plan, or intent as of 03/06/18. Client Response/Progress/Benefit: []Client responded well to session, providing positive support to peers. Client reports feeling happy and anxious today as client shared she and her are going on a getaway tours boat this weekend and will be going to an aquarium. Client stated this is both exciting but a little nerve-racking. Client identified two current positives as seeing more positive changes in her self-esteem and mental health as well as going for a walk yesterday with her . Client shared one negative she is struggling with is change. Client reported even though its a positive thing Im changing, and my tells me that. Client discussed how her has not always been supportive of client coming to IOP, but client has been able to set boundaries which has helped client focus on her mental health and make progress. Client appeared to benefit from identifying progress and from connecting with peers. Client to continue IOP to prevent decompensation and continue working on managing negative thought patterns.
--- NOTE | 2018-03-06 10:15 | BH.SGPN.GN ---
Behaviors/Verbalizations/Mental Status: [Client maintained good eye contact, casually and neatly dressed, motor activity appropriate slight fidgeting throughout, speech normal rate and soft tone, mood anxious, euthymic, full, bright affect, thoughts linear and intact, no evidence of delusions or hallucinations.] Client Response/Progress/Benefit: [Client receptive of session and actively engage throughout AEB providing input and insights to discussion and taking notes. Client did well to collaborate with fellow participants to attempt to complete ?group juggle? activity and appeared to benefit from being challenged to do so as she was able to make several connections between activity and components of a resilient lifestyle. Client identified that if anxiety can impact ability to communicate clearly and effectively during crisis as well as lead to making irrational or impulsive decisions. Client noted struggling with communicating with her supports, specifically her . Client appeared to benefit from gaining awareness of the different factors that contribute to building a resilient lifestyle. Client identified connecting with the ?hope and optimism? and ?courage and confidence? components and indicates a need to improve upon them in her own life. Progress noted in client ability to make connections between materials discussed and own life. Continued treatment necessary to improve communication and symptoms management, as well as maintain stability.] Narrative Note: []
--- NOTE | 2018-03-06 11:20 | BH.SGPN.GN ---
Behaviors/Verbalizations/Mental Status: [Client maintained good eye contact, casually and neatly dressed, motor activity appropriate slight fidgeting throughout, speech normal rate and soft tone, mood anxious, euthymic, full, bright affect, thoughts linear and intact, no evidence of delusions or hallucinations.] Client Response/Progress/Benefit: [Client was receptive of session, and again did well to participate in both activity and reflection portions. Client collaborated with the group to complete the second resilience challenge and was encouraging to group as they tried various strategies suggested to increase speed. Client continues to benefit from the activity portions of group, as she appears more engaged and increasingly able to make connections between challenge activities and management of mental health symptoms. Client reflected with group on how elements of activity relate to daily life and completed the Stress Ball activity in which Clients identified things to remind them of their own resilience. Client identified wanting to improve her levels of ?courage and confidence? in her own life and indicated writing ?5 senses?, ?affirmations?, ?you can do this? and ?be kind to yourself!? on her stress ball. Continued treatment necessary to improve skill application and thought challenging, and maintain stability.] Narrative Note: []
--- NOTE | 2018-03-09 09:05 | BH.SGPN.GN ---
Behaviors/Verbalizations/Mental Status: [Client maintained good eye contact, appearance neat and casual, motor activity appropriate, speech normal rate and tone, mood euthymic, congruent affect, thoughts linear and intact, no evidence of delusions or hallucinations.] Client Response/Progress/Benefit: [Attentive and providing input to discussion as well as supportive feedback. Emotion for today is happy and hopeful as client reports she had a really good weekend with her in [place] and been able to successfully maintain a healthy boundary and assert her needs. Client explained that while at dinner with another couple politics came up and she began to feel uncomfortable in the conversations. Client reports making a comment to change topics which was successful and empowering as she does not usually stand up for herself, this is diplaying progress in levels of improved self-esteem and thought challenging. Client benefitted from celebrating successes and processing with the group. Progress noted in client beginning to apply skills learned and using healthy communication. Continue treatment to improve consistent skill application and maintain stability.] Narrative Note: []
--- NOTE | 2018-03-09 10:25 | BH.SGPN.GN ---
Behaviors/Verbalizations/Mental Status: []Pt eye contact good, casually dressed, motor activity appropriate, speech normal rate and tone, mood euthymic, congruent affect, thoughts linear and intact, no evidence of delusions or hallucinations. Client Response/Progress/Benefit: []Pt listened attentively to others and was actively involved AEB pt sharing thoughts and ideas with group. pt reported setting goals is difficult for her because she tends to lose track of how she is doing on the goal which leads pt to not finish her goals. Pt shared negative thoughts also become a barrier for her at times to setting or follow through with goals. Pt shared what she has taken away from group session today is reminding self to make attainable goals because likely will be more relaxed which could lead to accomplishing goal. Pt reported also is helpful to ask for help from supports when needed if struggling with accomplishing a goal. Pt seemed to benefit from rehearsing setting small goals. Narrative Note: []
--- NOTE | 2018-03-09 11:25 | BH.SGPN.GN ---
Behaviors/Verbalizations/Mental Status: []Pt eye contact good, casually dressed, motor activity appropriate, speech normal rate and tone, mood anxious, congruent affect, thoughts linear and intact, no evidence of delusions or hallucinations. Client Response/Progress/Benefit: []Pt listened attentively to others and contributed thoughts and ideas to discussion. Pt reported her goal is to research and identify at least one activity that will help pt more more active and get out of the house. Pt identified focusing on this goal will benefit her by increaseing self-care adn improving mental health. Pt reported potential obstacle could be negativity and lack of support from . Pt shared to overcome obstacle of negativity from she will verbalize her needs and wants, trying to help him understand importance of pt taking care of herself. Pt seemed to benefit from setting a SMART goal and identifying strategies that will help her overcome any potential obstacles that might occur. Pt to continue IOP level of care to increase assertiveness, increase support system, and prevent decompensation. Narrative Note: []
--- NOTE | 2018-03-11 09:00 | BH.SGPN.GN ---
Behaviors/Verbalizations/Mental Status: [] Pt eye contact fair, casually dressed, motor activity restless, speech normal rate and tone, mood anxious, congruent affect, thoughts linear and logical, no evidence of delusions or hallucinations. Reviewed client?s symptom tracker, no signs of suicidal ideation, plan, or intent as of today. Client Response/Progress/Benefit: [] Client reported to positive feelings include: Her shared that he had went to the shooting range while she was at [facility] which gives her hope that he is starting to enjoy things again. Reported a second positive is spending time in the garden and outdoors which made her feel calm and relaxed. Client reported that her goal was [facility] but after talking to the organizer of the group it is encouraged that client attend all sessions which is not something client shared she can do at this time so plans to attend the session in August. Client reported she did sign up for a driving class in self-defense class but will also work for another class that is more consistent. Client demonstrating progress AEB client following through with her goals and increasing extracurricular activities. Client to continue IOP level of care to maintain gains and prevent decompensation. Narrative Note: []
--- NOTE | 2018-03-11 10:25 | BH.SGPN.GN ---
Behaviors/Verbalizations/Mental Status: []Client alert and oriented, neatly dressed and groomed. Eye contact good. Motor activity appropriate. Speech within normal limits. Affect constricted, mood euthymic,anxious. Thoughts linear, logical, no signs of hallucinations or delusions. Client Response/Progress/Benefit: []Client responded well to session, providing good insight to discussion. Client connected with the quote sharing, ?you can create a positive thought or make a worse case scenario.? ?Client participated as the group discussed the different types of distortions and client reported she most often uses personalizing and disqualifying the positives. Client able to recognize how cognitive distortions negatively impact one?s mental health as client shared when she uses personalization she feels guilty ?when it?s not my fault.? Client appeared to benefit from gaining insight to the different types of cognitive distortions. Client to continue IOP as she has made progress with challenging negative thoughts, she but continues to struggle with boundaries and low self-esteem.
--- NOTE | 2018-03-11 11:25 | BH.SGPN.GN ---
Behaviors/Verbalizations/Mental Status: []Client alert and oriented, neatly dressed and groomed. Eye contact good. Motor activity appropriate. Speech within normal limits. Affect constricted, mood euthymic. Thoughts linear, logical, no signs of hallucinations or delusions. Client Response/Progress/Benefit: []Client responded well to session, quiet during activity, but sharing during discussion. Client was engaged during the group activity and connected that overcoming cognitive distortions takes a lot of time, practice, and energy. Client shared ?I need to start writing mine out.? Client stated it is important to have awareness when she is using distortions because client does not always recognize she is being negative to herself. Client participated with the group in identifying cognitive distortions and replacing them. Client challenged her thought of ?my will be mad at me if I go to the library? which client identified as jumping to conclusions. With group help, client reframed the thought to ?it?s important for me to do things for me.? Client appeared to benefit from gaining insight to the effort it takes to replace negative thoughts and from challenging a negative thought during group.
--- NOTE | 2018-03-13 09:00 | BH.SGPN.GN ---
Behaviors/Verbalizations/Mental Status: [] Eye contact was fair. Motor Activity was restless. Appearance was casual. Speech was appropriate. Mood was anxious. Affect was congruent. Thoughts are linear and logical. No evidence of hallucinations/delusions noted. Therapist reviewed daily mood tracker for suicidal ideations and none were reported. Client Response/Progress/Benefit: [] Pt was an active participant in group discussion. Emotion for today is happy. Shared with the group her assignment in which she wrote down her events, thoughts, cognitive distortions, and alternative thoughts. Showed insight into how this was helpful. Also discussed how it was challenging to combat the distortions that she has been using foe so long. Overall reports that she will continue with the assignment. She continues to utilize external coping skills such as yoga. Reports improved relationship with as they spent time with each other yesterday which was positive. Upcoming plans this weekend which she is looking forward too. Benefited from group support and feedback. Will continue in IOP to maintain gains, prevent decompensation, and decrease anxiety. Progress noted as she is becoming more aware of cognitive distortions and ways to manage her thoughts. Narrative Note: []
--- NOTE | 2018-03-13 10:05 | BH.SGPN.GN ---
Behaviors/Verbalizations/Mental Status: []Client alert and oriented, neatly dressed and groomed. Eye contact good. Motor activity appropriate. Speech within normal limits. Affect full, mood euthymic. Thoughts linear, logical, no signs of hallucinations or delusions. Client Response/Progress/Benefit: []Client responded well to session, providing good insight to discussion. Client appeared to connect with the topic sharing fear of failure has kept client from making potentially positive changes in her life. Client reported failure to her means letting others down, which can be difficult because I know you cant please everyone. Client stated fear of failure is keeping her from going through old stuff in her basement. Client participated in the group activity and shared there were times client might have known which path to take, but she was too afraid to mess up that client would second-guess herself. Client appeared to benefit from increasing awareness of the impact fear of failure can have on ones mental health. Client to continue IOP to promote gains and increase use of coping skills to manage anxiety and depression.
--- NOTE | 2018-03-13 11:07 | BH.SGPN.GN ---
Behaviors/Verbalizations/Mental Status: []Client alert and oriented, neatly dressed and groomed. Eye contact good. Motor activity appropriate. Speech within normal limits. Affect full, mood euthymic. Thoughts linear, logical, no signs of hallucinations or delusions. Client Response/Progress/Benefit: []Client responded well to session, active participant. Client processed the group activity and reflected that overcoming fear of failure means she will have to identify strategies to get past barriers. Client stated fear of failure has caused client to second guess herself and has led to low self-esteem. Client identified strategies to overcome fear of failure such as challenging negative thoughts, setting small daily goals, and communicating her needs. Client appeared to benefit from increasing awareness of how fear of failure has impacted her life. Progress noted as shown by clients report of improve mood and assertive communication, but she continues to struggle with negative thinking and boundary setting.
== END 2018-03-13 23:59 ==
LOC: BHIOP 09:00
PROVIDERS: Visit Provider Psychiatry & Neurology Psychiatry
DX: F33.2 Major depressive disorder, recurrent severe without psychotic features (principal); F41.9 Anxiety disorder, unspecified; Z79.899 Other long term (current) drug therapy
CPT/HCPCS: H0035; 90832; 90847; 90853

== ENCOUNTER 2018-03-18 09:00 | Outpatient (RCR) | payer MEDICARE, OTHER, SELFPAY ==
--- NOTE | 2018-03-18 09:03 | BH.SGPN.GN ---
Behaviors/Verbalizations/Mental Status: []Client alert and oriented, neatly dressed and groomed. Eye contact fair. Motor activity appropriate. Speech within normal limits. Affect congruent, mood euthymic. Thoughts linear, logical, no signs of hallucinations or delusions. Reviewed clients symptom tracker, no risk for suicidal ideation, plan, or intent as of 03/18/18. Client Response/Progress/Benefit: []Client responded well to session, providing supportive statements to peers. Client reports feeling peaceful today after having a fun weekend at the air show in [place]. Client stated she was proud of herself for taking care of her basic needs and setting boundaries at the air show. Client shared she has been working on writing out and challenging her cognitive distortions which has been beneficial in reducing clients anxiety. Client reported she used this technique over the weekend to challenge an anxious thought about her and client was able to identify a more balanced, rational thought. Client seemed to benefit from reflecting on her use of healthy coping skills. Progress noted as shown by clients improved mood and increased management of anxiety through use of coping skills. Client to discharge from [facility] Friday, but she can benefit from one more day of [facility] for aftercare and discharge planning.
--- NOTE | 2018-03-18 10:20 | BH.SGPN.GN ---
Behaviors/Verbalizations/Mental Status: []Pt eye contact fair, casually dressed, motor activity restless, speech normal rate and tone, mood anxious, congruent affect, thoughts linear and logical, no evidence of delusions or hallucinations. Client Response/Progress/Benefit: []Client listened attentively to others, provided support to peers, and contributed to discussion. Client reported she now has improved ability to reframe her thought patterns which decreases her stress because she is limiting her negativity from creating unneeded stressors. Client shared her current stressors include: worrying that she won't be able to maintain success after discharging from IOP, relationship issues, no relationship with children, and clutter in her basement. Client reported although she has many stressors in her life she recognizes she has more skills to manage her stress like: using supports, self-care, and using healthy coping skills. Client demonstrating progress with increased self-awareness of her current stressors and being able to identify progress. Client to continue IOP level of care to maintain gains and prevent decompensation. Narrative Note: []
--- NOTE | 2018-03-18 11:30 | BH.SGPN.GN ---
Behaviors/Verbalizations/Mental Status: []Pt eye contact fair, casually dressed, motor activity restless, speech normal rate and tone, mood anxious, congruent affect, thoughts linear and logical, no evidence of delusions or hallucinations. Client Response/Progress/Benefit: []Client contributed to discussion, listened attentively to others and provided support. Client listened to others ideas during group activity, remained passive throughout; went along with others suggestions, not providing her own ideas or thoughts. Client connected with others that the group was successful by using clear communication, working as a team, and focusing on each small gaol. When learning about the 4 A's to decrease stress client connected with the avoidance skill of not setting self up for additional stress. Client reported her goal is to follow up with scheduled aftercare for when she discharges from program on Friday. Client shared she recognizes importance of having additional help once discharge from IOP so she can maintain her progress. Client demonstrating progress with increased self-awareness and improved ability to recognize the positives. Client to discharge from IOP on Friday. Continuing IOP to maintain gains and prevent decompensation. Narrative Note: []
--- NOTE | 2018-03-18 22:08 | BH.MDN ---
Multi-Disciplinary Note - Note 30-min Individual Time Started:: 12:35 Date: 03/18/18 Purpose of session/treatment goals addressed:: Purpose of session was to discuss and solidfy discharge plans for when client discharges from IOP on Friday. Also addressed current stressors and anxieties. Eye Contact:: Fair Motor Activity:: Appropriate Appearance:: Casual Speech:: Appropriate Mood:: Euthymic, Anxious Affect:: Congruent Thoughts:: Linear, Logical, No evidence of hallucinations/delusions noted Staff Interventions:: Therapist used open ended questions to elicit pt' thoughts and feelings about discharging from IOP. Therapist validated pt's emotions and assited pt with recognizing progress pt has made since starting IOP. Therpaist reviewed pt's aftercare plans for follow up counseling and assisted pt with identifying groups and activites at [facility] pt would be willing to try. Therapist challenged pt's distorted thought pattern in regards to recent dinner with friend and elicited pt's thoughts and ideas on how to deal with situation. Client Response:: Client reported overall things are going much better. Client shared she had a really good weekend because she went with her to two different events throughout the weekend, which she really enjoyed spending time with her . Client reported she also had a direct conversation with her of wanting to be able to do thing seperate of him. Client shared she was able to express that she still loves him and wants to do things with him, but also explained the importance of having time for herself. Client reported the conversation went really well and she was able to schedule an outing with her best friend. Client shared she has been beating myself up over not feeling she was supportive enough to her friend that shared something personal with client. With encouragement from therapist yun able to identify two things she could do to stop the rumination about the outing is to either write a card or make a phone call to friend expressing how much he means to client that client's friend can open up and share those personal things. Client recognized importance of taking care of small things like situation with friend and doing something about it immediately so don't spend time worrying about something that could be taken care of rather quickly. Client expressed concern about discharing from IOP, worried about not being able to maintain the progress she has made. Client able to note progress she has made since starting IOP. Client identified several groups and activities at the [facility] she would be willing to try. Client shared she has appointment scheduled for her outpatient counselor and agreed to meet with counselor initially weekly so she has weekly support and refresher of her skills. Risks/Concerns:: Client does not present any risks or concerns at this time. Progress Toward Goals/Plan:: Client has demonstrated progress with decreased depression, improved energy, increased motivation, increased self-awarness with ability to challenge and defeat distorted thinking patterns, and has started to engage in activities she used to like as well as willing to try new things. Client also demonstrates increased self-confidence and more assertive communication with her . Plan is for client to discharge from [facility] level of care on Friday due to making signficiant treatment progress. Time Stopped:: 13:05
--- NOTE | 2018-03-20 09:56 | BH.AFTERPLAN ---
Aftercare Plan - Demographics Treatment End Date:: 03/20/18 Psychiatrist:: Angela Cook Psychiatrist Office #:: [phone] [facility]/IOP Therapist:: Laura Colon Therapist Phone #:: [phone] - Plan Details Progress/Aftercare Plan Details:: You have made signficiant progress since starting IOP! You report decrease in both depressive and anxious symptoms. Using your healthy coping skills consistently seems to have helped improve your mood and decrease symptoms. You are more assertive and have improved your conflict resolution skills. You report increased energy and concentration. You have started to participate in more activities outside the home and report that you now enjoy what you are doing. For aftercare the plan is for you to follow up with your counselor at [facility]. It is also recommeded to speak with outpatient counselor about getting set up with a couples counselor. Remember it could also be helpful to attend the [facility] at least one time per week for additional support and reinforcement of skills. Strategies for Success:: 1. 5,4,3,2,1 grounding tool. 2. Get out of the house! 3. Taking walks and using mindfulness tools in the moment. 4. Continue your daily meditation practice. 5. Continue to participate in Qi Gong. 6. Remember to directly communicate! No one can read your mind and nothing will change if don't communicate directly. 7. Continue to recognize and defeat distorted thought patterns. 8. Explore different activities that you could engage in during winter months since you report that is the toughest time for you. 9. Remember the importance of taking time for you; having activities to do for self-care is varma. 10. Continue to participate in activities with your that keep you connected. - Appointments Appointments/Referrals to Other Services:: 1. 04/13/18 Counseling Appointment at [facility]. 2. Attend [facility] at least one time per week. 3. Look into being set up for couples counseling. 4. April 24 scheduled to see Lianna camp for medication management
--- NOTE | 2018-03-20 10:15 | BH.SGPN.GN ---
Behaviors/Verbalizations/Mental Status: []Pt eye contact fair, casually dressed, motor activity appropriate, speech normal rate and tone, mood euthymic, congruent affect, thoughts linear and logical, no evidence of delusions or hallucinations. Client Response/Progress/Benefit: []Pt contributed to discussion, listened attentively to others, and worked cooperatively with peers during activity. Pt reported initially it seems the easier path is better because takes less effort and energy, however over time the choices made on the easy path tend to result in increased problems. Pt shared an example that at first it might seem to be a good idea to isolate and avoid problems, but after awhile start to feel increasingly depressed. Pt connected importance of communicating and having awareness of pitfalls as strategies used in activity that helped group avoid pitfalls and could be helpful to overcome personal pitfalls. Pt seemed to benefit from increased awareness of impact personal pitfalls can have on progress and impact taking the easy path can have on mental health. Narrative Note: []
--- NOTE | 2018-03-20 11:25 | BH.SGPN.GN ---
Behaviors/Verbalizations/Mental Status: []Pt eye contact fair, casually dressed, motor activity appropriate, speech normal rate and tone, mood euthymic, congruent affect, thoughts linear and logical, no evidence of delusions or hallucinations. Client Response/Progress/Benefit: []Pt listened attentively to peers and contributed thoughts and ideas to discussion. Pt identified her personal pitfalls to include: forgetting self-care, doing the same thing over and over again and not realizing it, and not following through with activities. Pt reported she recognizes the importance of taking care of herself and recognizes after discharge from [facility] she needs to be mindful to not fall into those pitfalls. Pt identified her goal is: challenging cognitive distortions at least three times a day and will use her cognitive distortions book to help. Pt seemed to benefit from increased awareness of her personal pitfalls. Plan is for pt to discharge from [facility] level of care today due to no longer meeting medical necessity. Narrative Note: []
--- NOTE | 2018-03-20 14:57 | BH.DS ---
Discharge Summary - Demographics Date of Admission:: 02/02/18 Discharge Date: 03/20/18 Presenting Problems at Admission:: Pt presented at admission that since retiring 2 years ago she had noticed her mental health symptoms slowly worsening given she lost her routine and feels she has no purpose. Pt reported over the past 6 months she has continued to decompensate. Endorsed increased agitation, low motivation, low energy, decreased concentration, and anhedonia. Endorsed daily anxiety, uncontrollabe worry, occassional panic attacks. Pt reported feeling stuck and doesn't know what she wants to get out of life. 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 Anxiety unspecified. Remote history of anorexia Reason for Discharge:: Pt has made significant progress on her treatment goals and no longer meets medical necessity for IOP level of care. - Treatment Progress During Treatment & Response: Pt has made signifcant progress with decreased depression and anxiety AEB pt's scores on the DSM 5 cross-cutting measure. Pt's intake score for depression scale was a 4 out of 8 and her discharge score was a 2 out of 4 which demonstrates a decline in depressive symptoms. Pt's intake score for anxiety at intake was a 11 out of 12 and at discharge pt's score was a 3 out of 12, which demonstrates a significant decrease in anxious symptoms. Pt has also made progress with improved communication skills, decreased isolative behaviors, improved energy and enjoyment in activities. Pt was an active participant throughout treatment, contributing her thoughts and generalizing skills. Issues Still to be Addressed:: Pt could benefit from continued reinforcement of healthy skills, encouragement to maintain self-care activities, and continued work on assertive communication. Winter months tend to be the most difficult time for pt so it would be helpful to develop a plan of action as to what could help pt stay active and decrease isolative behaviors. Pt could also benefit from couples counseling. Discharge Recommendations/Instructions:: 1. 04/13/18 Counseling Appointment at [facility]. 2. Attend [facility] at least one time per week. 3. Look into being set up for couples counseling. 4. April 24 scheduled to see Lianna kim [facility] for medication management Discharge Handout: Complete Discharge Handout with client on aftercare options and continuity of care.
--- NOTE | 2018-03-20 15:38 | BH.DS_ITS ---
Discharge Summary - Demographics Date of Admission:: 02/02/18 Discharge Date: 03/20/18 Presenting Problems at Admission:: Pt presented at admission that since retiring 2 years ago she had noticed her mental health symptoms slowly worsening given she lost her routine and feels she has no purpose. Pt reported over the past 6 months she has continued to decompensate. Endorsed increased agitation, low motivation, low energy, decreased concentration, and anhedonia. Endorsed daily anxiety, uncontrollabe worry, occassional panic attacks. Pt reported feeling stuck and doesn't know what she wants to get out of life. 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 Anxiety unspecified. Remote history of anorexia Reason for Discharge:: Pt has made significant progress on her treatment goals and no longer meets medical necessity for IOP level of care. - Treatment Progress During Treatment & Response: Pt has made signifcant progress with decreased depression and anxiety AEB pt's scores on the DSM 5 cross-cutting measure. Pt's intake score for depression scale was a 4 out of 8 and her discharge score was a 2 out of 4 which demonstrates a decline in depressive symptoms. Pt's intake score for anxiety at intake was a 11 out of 12 and at discharge pt's score was a 3 out of 12, which demonstrates a significant decrease in anxious symptoms. Pt has also made progress with improved communication skills, decreased isolative behaviors, improved energy and enjoyment in activities. Pt was an active participant throughout treatment, contributing her thoughts and generalizing skills. Issues Still to be Addressed:: Pt could benefit from continued reinforcement of healthy skills, encouragement to maintain self-care activities, and continued work on assertive communication. Winter months tend to be the most difficult time for pt so it would be helpful to develop a plan of action as to what could help pt stay active and decrease isolative behaviors. Pt could also benefit from couples counseling. Discharge Recommendations/Instructions:: 1. 04/13/18 Counseling Appointment at [facility]. 2. Attend [facility] at least one time per week. 3. Look into being set up for couples counseling. 4. April 24 scheduled to see Lianna kim [facility] for medication management Discharge Handout: Complete Discharge Handout with client on aftercare options and continuity of care.
--- NOTE | 2018-03-20 15:40 | BH.MDN ---
Multi-Disciplinary Note - Note 30-min Individual Time Started:: 09:06 Date: 03/20/18 Purpose of session/treatment goals addressed:: Purpose of session was to identify progress since entering [facility], identify strategies for success, and solidfy aftercare plan. Eye Contact:: Fair Motor Activity:: Appropriate Appearance:: Casual Speech:: Appropriate Mood:: Euthymic Affect:: Congruent Thoughts:: Linear, Logical, No evidence of hallucinations/delusions noted Staff Interventions:: Therapist used open ended questions to elicit pt's current thoughts about her treatment progress. Therapist worked collaboratively with pt to identify strategies that can help pt maintain stability post-discharge from [facility]. Therapist solified aftercare plan with pt. Client Response:: Pt reported she has seen a lot of progress in herself compared to when she started IOP. Pt reported her depression and anxiety has decreased significantly. Pt shared she has better knowledge and consistently applies her healthy coping skills. Pt reported she has noticed improvement in her marriage due to improved communication and conflict resolution skills. Pt shared I now am looking forward to life and actually enjoy activities. Pt identifeid strategies that will help her maintain progress to include: grounding skills, getting out of house, taking walks, meditation, Qi Gong, openly communicating, and recognizing distorted thought patterns. Pt has scheduled appointments for both her outpatient counselor and psychiatrist. Pt agreeable to aftercare plan and stated she does feel ready for discharge. Risks/Concerns:: Pt does not present with any risks or concerns to date. Progress Toward Goals/Plan:: Pt has made signifcant progress with decreased depression and anxiety AEB pt's scores on the DSM 5 cross-cutting measure. Pt's intake score for depression scale was a 4 out of 8 and her discharge score was a 2 out of 4 which demonstrates a decline in depressive symptoms. Pt's intake score for anxiety at intake was a 11 out of 12 and at discharge pt's score was a 3 out of 12, which demonstrates a significant decrease in anxious symptoms. Pt has also made progress with improved communication skills, decreased isolative behaviors, improved energy and enjoyment in activities. Plan is for pt to discharge from [facility] level of care today. Time Stopped:: 09:30
--- NOTE | 2018-03-26 11:26 | BH.MDN_ITS ---
Multi-Disciplinary Note - Note 30-min Individual Time Started:: 09:06 Date: 03/20/18 Purpose of session/treatment goals addressed:: Purpose of session was to identify progress since entering [facility], identify strategies for success, and solidfy aftercare plan. Eye Contact:: Fair Motor Activity:: Appropriate Appearance:: Casual Speech:: Appropriate Mood:: Euthymic Affect:: Congruent Thoughts:: Linear, Logical, No evidence of hallucinations/delusions noted Staff Interventions:: Therapist used open ended questions to elicit pt's current thoughts about her treatment progress. Therapist worked collaboratively with pt to identify strategies that can help pt maintain stability post- discharge from [facility]. Therapist solified aftercare plan with pt. Client Response:: Pt reported she has seen a lot of progress in herself compared to when she started IOP. Pt reported her depression and anxiety has decreased significantly. Pt shared she has better knowledge and consistently applies her healthy coping skills. Pt reported she has noticed improvement in her marriage due to improved communication and conflict resolution skills. Pt shared I now am looking forward to life and actually enjoy activities. Pt identifeid strategies that will help her maintain progress to include: grounding skills, getting out of house, taking walks, meditation, Qi Gong, openly communicating, and recognizing distorted thought patterns. Pt has scheduled appointments for both her outpatient counselor and psychiatrist. Pt agreeable to aftercare plan and stated she does feel ready for discharge. Risks/Concerns:: Pt does not present with any risks or concerns to date. Progress Toward Goals/Plan:: Pt has made signifcant progress with decreased depression and anxiety AEB pt's scores on the DSM 5 cross-cutting measure. Pt's intake score for depression scale was a 4 out of 8 and her discharge score was a 2 out of 4 which demonstrates a decline in depressive symptoms. Pt's intake score for anxiety at intake was a 11 out of 12 and at discharge pt's score was a 3 out of 12, which demonstrates a significant decrease in anxious symptoms. Pt has also made progress with improved communication skills, decreased isolative behaviors, improved energy and enjoyment in activities. Plan is for pt to discharge from [facility] level of care today. Time Stopped:: 09:30
== END 2018-04-12 23:59 ==
LOC: BHIOP 09:00
PROVIDERS: Visit Provider Psychiatry & Neurology Psychiatry
DX: F33.2 Major depressive disorder, recurrent severe without psychotic features (principal); F41.9 Anxiety disorder, unspecified; Z79.899 Other long term (current) drug therapy; R63.0 Anorexia
CPT/HCPCS: H0035; 90832; 90853

== ENCOUNTER → 2018-07-28 15:03 | Outpatient (CLI) | payer MEDICARE, OTHER, SELFPAY ==
[2018-07-28 17:20] LABS: White Blood Count 5.4 K/mm3 (4.4-11.0)
[2018-07-28 17:21] LABS: Absolute Lymphocyte Count 1.55 X10^3/ul (0.83-4.51); Absolute Neutrophil Count 3.4 X10^3/uL (2.0-7.7); Basophil# 0.03 X10^3/uL; Basophil% 0.6 % (0-1); Eosinophil# 0.07 X10^3/uL; Eosinophils% 1.3 % (0-5); Hematocrit 42.1 % (37-47); Hemoglobin 14.3 g/dl (12.0-15.0); Lymphocyte # 1.55 X10^3/ul (4.0); Lymphocyte % 28.5 % (19-41); Mean Corpuscular Hgb 30.2 pg (27.0-32.0); Monocyte# 0.37 X10^3/uL; Monocyte% 6.8 % (0-10); Neutrophil % 62.6 % (47-70); Platelet Count 213 K/mm3 (150-450); RBC Distribution Width CV 12.8 % (11.6-14.6); RBC Distribution Width SD 41.3 fl (35.1-43.9); Red Blood Count 4.73 M/mm3 (4.2-5.4)
[2018-07-28 17:23] LABS: POSITIVE COUNT NO; POSITIVE DIFFERENTIAL NO; POSITIVE MORPHOLOGY NO
[2018-07-28 17:46] LABS: ALB/GLOB Ratio 1.1 RATIO (0.9-2.4); AST(SGOT) 22 U/L (15-37); Alanine Aminotransfer ALT/SGPT 28 U/L (13-56); Albumin, Serum 3.9 g/dL (3.2-5.0); Alkaline Phosphatase 73 U/L (45-117); Anion Gap 6 (5-15); BUN 13 mg/dL (7-18); BUN/Creat Ratio 18.7 RATIO (10-20); Calcium,Total 9.3 mg/dL (8.5-10.1); Chloride 103 mmol/L (98-107); EST Glomerular Filtration Rate 89 mL/min (>60); Est Glom Filt Rate - Afr Amer 108 mL/min (>60); Globulin 3.6 g/dL (2.2-4.2); Glucose 107 mg/dL (74-106); Potassium 3.9 mmol/L (3.5-5.1); Protein, Total 7.5 g/dL (6.4-8.2); Sodium Level 137 mmol/L (136-145); Thyroid Stim Hormone (TSH) 1.28 uIU/mL (0.358-3.74)
[2018-07-28 17:47] LABS: Vitamin D,25 Hydroxy 52.3 ng/mL (29.95-100.01)
[2018-07-30 09:40] LABS: Hep C Antibodies 0.1 s/co ratio (0.0-0.9)
== END ==
PROVIDERS: Visit Provider Family Medicine Geriatric Medicine
DX: Z00.00 Encounter for general adult medical examination without abnormal findings (principal); Z13.89 Encounter for screening for other disorder; E55.9 Vitamin D deficiency, unspecified
CPT/HCPCS: 36415; 80053; 82306; 84443; 85025; 86803

== ENCOUNTER → 2020-01-11 15:01 | Outpatient (CLI) | payer MEDICARE, OTHER, SELFPAY ==
[2019-09-06 10:14] VITALS: BMI 19.1
--- NOTE | 2020-01-11 15:04 | VDLE_ITS ---
Reason For Study: Swelling RIGHT LEFT CFV is compressible, spontaneous, phasic, GSV is normal. competent and demonstrates normal CFV is compressible, spontaneous, phasic, augmentation. competent, and demonstrates normal FV is compressible, spontaneous, phasic, augmentation. competent and demonstrates normal FV is compressible, spontaneous, phasic, augmentation. competent and demonstrates normal POP V is compressible, spontaneous, phasic, augmentation. competent and demonstrates normal POP V is compressible, spontaneous, phasic, augmentation. competent and demonstrates normal T/P Trunk is compressible. augmentation. PTV is compressible. T/P Trunk is compressible. RT PerV is compressible. PTV is compressible. Acute superficial vein thrombosis is noted in LT PerV is compressible. the right GSV from prox calf to mid calf and mid thigh. Thrombus filled varicose veins are noted in the prox-mid anterior calf. Procedure Exam performed in department. A preliminary report was called and/or faxed to [facility]. Interpretation Summary Deep veins of the lower extremities are bilaterally patent and compressible segmentally. There is no evidence of deep vein thrombosis on either side. Valvular competence appears intact within the proximal deep venous systems bilaterally. Acute superficial thrombophlebitis is noted in the right great saphenous vein in the proximal-mid calf and the mid-thigh. The left great saphenous vein appears patent and compressible segmentally. Acute superficial thrombophlebitis is noted involving superficial varicosities in the right proximal and mid-calf. Ordering Physician: Sina Joyce Referring Physician: Derick Hansen Performed By: Elsi Wolfe RVT
== END ==
PROVIDERS: PCP Family Medicine; Referring Provider Internal Medicine Hematology & Oncology; Visit Provider Internal Medicine Hematology & Oncology
DX: M79.89 Other specified soft tissue disorders (principal); C25.0 Malignant neoplasm of head of pancreas
CPT/HCPCS: 93970

== ENCOUNTER 2020-01-20 16:55 | Inpatient (IN) | payer MEDICARE, OTHER, SELFPAY ==
[2019-09-06 10:14] VITALS: BMI 19.1
[2020-01-20 17:04] VITALS: BP 123/64; PULSE 94; RESP 17; TEMP 37.1; O2SAT 98
[2020-01-20 18:02] VITALS: BMI 20.2
--- NOTE | 2020-01-20 18:03 | RAD_ITS ---
STUDY: X-RAY - ABDOMEN/PELVIS REASON FOR EXAM: Female, 69 years old. Abdominal distention TECHNIQUE: Two AP supine views of the abdomen and pelvis. COMPARISON: None. FINDINGS: There are air-filled mildly dilated loops of small and large bowel which is likely due to ileus. The visualized osseous structures are within normal limits. RAD/Abdomen Single View IMPRESSION: Air-filled mildly dilated loops of small and large bowel which is likely due to ileus. Electronically Signed: Bart Griffin, at 19:39 EDT Tel , Service support ,
[2020-01-20 18:04] VITALS: BMI 20.3
[2020-01-20] MEDS: traZODone 50 MG Tablet 100 MG PO (20:54)
[2020-01-20] MEDS: Sucralfate 1 GM Tablet PO (20:54)
--- NOTE | 2020-01-20 21:28 | HP.PCM_ITS ---
Problem List (1) Debility Status: Acute (2) Leukopenia Status: Chronic (3) Peritoneal metastases Status: Chronic (4) Atrophic vaginitis Status: Chronic (5) GERD (gastroesophageal reflux disease) Status: Chronic (6) Hypothyroidism Status: Chronic (7) Insomnia Status: Chronic (8) Psychotic disorder Status: Chronic (9) Anxiety Status: Chronic (10) Pancreas cancer Status: Acute History of Present Illness Date of Admission: 01/20/20 Chief Complaint: Here for rehabilitation, strengthening, prior to discharge home with . The patient is a 69 year old Female with below past medical history with following: June 2019 CT abdomen/pelvis pancreatic head mass. 07/30/2019 Dr. Alvarez noted large mass in head of pancreas encompassing portal vein, recommend neoadjuvant chemotherapy, reassessment. 08/05/2019 Endoscopic ultrasound with FNA showed adenocarcinoma. CA 19-9 361.8. 08/11/2019 Dr. Joyce gave FOLFIRINOX. 01/13/2020 Admit to [facility]. Diagnostic laparoscopy, peritoneal biopsy, Whipple procedure. Multiple peritoneal mets positive for adenocarcinoma. Palliative consulted. Palliative chemotherapy an option, but patient may not want further treatment. Prognosis poor. 01/20/2020 Admit to TCU with debility, here for rehabilitation, strengthening, prior to discharge home with hospice. Past Medical History Past Medical History (Chronic Problems): Chronic Problems (Last Updated 09/06/19 @ 10:26 by Allie Umanzor) Leukopenia (Chronic) Peritoneal metastases (Chronic) Atrophic vaginitis (Chronic) GERD (gastroesophageal reflux disease) (Chronic) Hypothyroidism (Chronic) Insomnia (Chronic) Psychotic disorder (Chronic) Anxiety (Chronic) Medical History: Medical History (Last Updated 09/06/19 @ 10:26 by Allie Umanzor) Anxiety F41.9 Atrophic vaginitis N95.2 Depression F32.9 GERD (gastroesophageal reflux disease) K21.9 Hyperlipidemia E78.5 Hypothyroidism E03.9 Insomnia G47.00 Leukopenia D72.819 PORT PLACEMENT Vitamin D deficiency E55.9 Allergies amoxicillin Adverse Reaction (Severe, Verified 09/06/19 10:03) Unknown ciprofloxacin [From Cipro] Adverse Reaction (Severe, Verified 09/06/19 10:03) Pain in joints prochlorperazine [From Compazine] Adverse Reaction (Severe, Verified 09/06/19 10:03) Swelling UNABALE TO TALK NAUSE/VOMITING Sulfa (Sulfonamide Antibiotics) Adverse Reaction (Severe, Verified 09/06/19 10:03) Rash FEVER atropine Adverse Reaction (Verified 01/20/20 18:16) Swelling Hypoxia, dry mouth and feeling of thick tongue Home Medications: Ambulatory Orders Medication Instructions Recorded Levomefolate [Deplin] 15 mg PO DAILY 03/20/18 Cholecalciferol (Vitamin D3) 5,000 unit PO UD 08/10/18 [Vitamin D3] Docusate Sodium [Dulcolax Stool 100 mg PO DAILY 08/10/18 Softener] Estrogens, Conjugated [Premarin] 1 dose VAGINAL DAILY 08/10/18 Famotidine 40 mg PO DAILY 08/10/18 Levothyroxine [Synthroid] 25 mcg PO DAILY 08/10/18 traZODone [Desyrel] 100 mg PO QHS 08/10/18 C,E,Zinc,Copper 11/Mawgk3r/Lut 1 each PO DAILY 08/12/18 [Ocuvite Adult 50 Plus Softgel] Cranberry Conc/C/Bacill Coag 1 each PO DAILY 08/12/18 [Cranberry Tablet] Lactobacillus Combination No.4 1 tab PO DAILY 08/12/18 [Senior Probiotic] Methylcellulose (with Sugar) 454 gm PO DAILY 08/12/18 [Citrucel Powder] Multivit-Min/FA/Lycopen/Lutein 1 each PO DAILY 08/12/18 [Centrum Silver Tablet] Dexamethasone [Decadron] 4 mg PO BIDCM 09/06/19 Haloperidol [Haldol] 0.5 mg GT BID 09/06/19 Lorazepam [Ativan] 1 mg PO BID PRN PRN 09/06/19 Olanzapine [Zyprexa] 10 mg PO DAILY 09/06/19 Acetaminophen [Tylenol Extra 500 mg PO Q4H PRN PRN 01/20/20 Strength] C,E,Zinc,Copper 11/Pbfjr6o/Lut 1 ea PO DAILY 01/20/20 [Ocuvite Adult 50 Plus Softgel] Cholecalciferol (Vitamin D3) 1 tab PO MOWEFRSA PRN 01/20/20 [Vitamin D3] Dicyclomine HCl [Bentyl] 10 mg PO TIDAC 01/20/20 Ketorolac [Toradol (BKC)] 15 mg IV Q6H 01/20/20 Loperamide HCl [Imodium A-D] 2 mg PO Q12H PRN PRN 01/20/20 Loratadine [Claritin] 10 mg PO DAILY 01/20/20 Nitrofurantoin Monohyd/M-Cryst 100 mg PO BID 01/20/20 [Macrobid 100 mg Capsule] Oxycodone HCl [Roxicodone] 10 mg PO Q6H PRN PRN 01/20/20 Pantoprazole Sodium [Protonix] 40 mg PO DAILY 01/20/20 Potassium Chloride 20 meq PO DAILY 01/20/20 Sucralfate [Carafate] 1 gm PO 4X/DAY 01/20/20 Surgical History: Surgical History (Last Reviewed 09/06/19 @ 10:00 by Allie Umanzor) History of delivery Z98.891 History of toe surgery Z98.890 History of tooth extraction K08.409 Surgical History: - - Whipple procedure, , ERCP stent, Metatarsal fracture, ingrown toenail. Psychiatric History: Anxiety, Schizophrenia DIRECTOR HOME History: No pertinent DIRECTOR HOME history Lives: Spouse/ Significant Other Smoking Status: Never smoker Tobacco Use: Non-smoker Alcohol: None Drugs: None - *Family History Maternal Family History: Family History (Last Reviewed 09/06/19 @ 10:01 by Allie Umanzor) Sister Lyme disease Breast cancer Mother Lung cancer Father CAD (coronary artery disease) Emphysema of lung History Items: Cancer - Breast., - - Alcohol/Drugs. Sibling Family History: Family History (Last Reviewed 09/06/19 @ 10:01 by Allie Umanzor) Sister Lyme disease Breast cancer Mother Lung cancer Father CAD (coronary artery disease) Emphysema of lung History Items: Cancer - Breast. Paternal Family History: Family History (Last Reviewed 09/06/19 @ 10:01 by Allie Umanzor) Sister Lyme disease Breast cancer Mother Lung cancer Father CAD (coronary artery disease) Emphysema of lung History Items: Heart Disease, - - Alcohol/Drugs. Review of Systems Constitutional: Reports: Anorexia. Denies: Chills, Fever, Weight Change HEENT: Denies: Head Aches, Sinus Congestion, Sinus Drainage Cardiovascular: Denies: Chest Pain, Palpitations Respiratory: Denies: Cough, Shortness of breath at rest, Sputum production Gastrointestinal: Denies: Abdominal Pain, Nausea, Vomiting Genitourinary: Denies: Dysuria Musculoskeletal: Denies: Joint Pain, Joint Tenderness Skin: Denies: Rash, Wounds Neurological: Denies: Numbness, Tingling, Focal weakness Psychiatric: Denies: Anxiety, Depression, Homicidal Ideations, Suicidal Ideation s Hematologic/ Lymphatic: Denies: Easy Bruising, Easy Bleeding VTE Information - Inpt Only VTE Present on Admission: No VTE Mechan Device Prophylaxis: Knee High DONG Hose VTE Pharm Prophylaxis ordered?: Yes Patient Problems: Active and Suspected Problems (Last Updated 09/06/19 @ 10:26 by Allie Umanzor) Debility (Acute) - Physical Exam Vitals/I&O's: Vital Signs Temp Pulse Resp BP Pulse Ox 98.8 F 94 17 123/64 H 98 01/20/20 17:04 01/20/20 17:04 01/20/20 17:04 01/20/20 17:04 01/20/20 17:04 Oxygen Delivery Method Room Air Weight: 48.76 kg Body Mass Index (BMI) 20.2 Intake and Output for Last 24 Hours 01/18/20 01/19/20 01/20/20 23:59 23:59 23:59 Intake Total 240 / 240 Balance 240 / 240 General: Alert, Oriented x3, Cooperative HEENT: Atraumatic, PERRLA, EOMI, Normocephalic Neck: Supple, No JVD, Negative Carotid Bruits Lungs: Clear to auscultation, Normal air movement Cardiovascular: Regular rate, No murmurs Abdomen: Bowel Sounds Present, Soft, Non Tender, Distended Extremities: No edema, Capillary Refill Less than 3 Seconds Skin: No rashes, No breakdown Musculoskeletal: No Tenderness to Palpation of Joints or Extremities Neurological: Cranial nerves II-XII grossly intact Psych/Mental Status: Normal Affect, Appropriate Current Medications Acetaminophen (Tylenol) 500 mg PO Q4H PRN PRN PRN Reason: Pain 1-10 or Fever Dicyclomine HCl (Bentyl) 10 mg PO TIDAC [facility] Dextrose/Sodium Chloride () 1,000 mls @ 60 mls/hr IV .[id number] [facility] Ketorolac Tromethamine (Toradol (Bkc)) 15 mg IV Q6H [facility] Stop: 01/21/20 00:01 Lactobacillus Acidophilus (Acidophilus) 1 tablet PO DAILY [facility] Levothyroxine Sodium (Synthroid) 25 mcg PO DAILY [facility] Loperamide HCl (Imodium) 2 mg PO Q12H PRN PRN PRN Reason: DIARRHEA/LOOSE STOOLS Loratadine (Claritin) 10 mg PO DAILY [facility] Lorazepam (Ativan) 1 mg PO BID PRN PRN PRN Reason: ANXIETY Multivitamins/Minerals (Healthy Eyes (Bkc)) 1 capsule PO DAILY [facility] Multivitamins/Minerals (Multivitamin With Minerals (Bkc)) [facility] Nitrofurantoin Macrocrystals (Macrobid) 100 mg PO BID [facility] Stop: 01/25/20 18:01 Non-Formulary Medication (Levomefolate) 15 mg PO DAILY [facility] Oxycodone HCl (Oxyir) 10 mg PO Q6H PRN PRN PRN Reason: Pain Score 1-10/10 Pantoprazole Sodium (Protonix) 40 mg PO DAILY [facility] Potassium Chloride (K-Dur) 20 meq PO DAILY [facility] Sodium Chloride () 10 - 40 ml IV UD PRN PRN Reason: SALINE FLUSH Sucralfate (Carafate) 1 gm PO 1HR_ACHS [facility] Last Admin: 01/20/20 20:54 Dose: 1 gm Documented by: Trazodone HCl (Desyrel) 100 mg PO QHS [facility] Last Admin: 01/20/20 20:54 Dose: 100 mg Documented by: Tuberculin PPD (Tubersol, Aplisol, Ppd) 5 tu ID X1 ONE Stop: 01/21/20 10:01 Tuberculin PPD (Tubersol, Aplisol, Ppd) 5 tu ID X1 ONE Stop: 01/28/20 10:01 Assessment/Plan All Active Problems (Last Updated 09/06/19 @ 10:26 by Allie Umanzor) Pancreas cancer (Acute) Debility (Acute) Leukopenia (Resolved) 69 year old female with below past medical history significant for metastatic pancreatic cancer, underwent Whipple procedure 01/13/2020, admitted to TCU with debility, here for rehabilitation, strengthening, prior to discharge home with hospice. * Debility - PT/OT. * Pain - Tylenol 1000MG Q6H PRN pain (1-3), Oxycodone 10MG Q6H PRN pain (4-10). * Bowel - Miralax 17GM daily, Senna/colace 1 tablet BID, Dulcolax 10MG daily PRN. * Adult immunization - Administer Prevnar 13, Pneumovax 23, Fluzone as appropriate. * DVT prophylaxis - Lovenox 40MG SC daily. * GI prophylaxis - Lactobacillus 1 tablet daily. * Hypothyroidism - Levothyroxine 25MCG daily. * Allergic Rhinitis - Loratadine 10MG daily. * Anxiety - Ativan 1MG BID PRN. * Macular Degeneration - Healthy Eye 1 tablet daily. * Nutrition - MVI daily. * Urinary Tract infection - Macrobid 100MG BID thru 01/25/2020. * GERD - Pantoprazole 40MG daily, Carafate 1GM QACHS. * Hypokalemia - K-Dur 20MEQ daily. * Insomnia - Trazodone 100MG QHS. * Ileus - D51/2NS 60cc/hour, stop Bentyl, stop Imodium.
[2020-01-20] MEDS: Dext 5%-0.45% NS 1,000 ML 60 ML IV (21:47)
[2020-01-20] MEDS: Ketorolac 15 MG/ML Vial IV (21:49)
[2020-01-20] MEDS: Nitrofurantoin Macrocrystals 100 MG Capsule PO (21:53)
[2020-01-21] MEDS: Ketorolac 15 MG/ML Vial IV (01:07)
[2020-01-21 05:44] LABS: Absolute Lymphocyte Count 0.56 X10^3/uL (0.83-4.51); Absolute Neutrophil Count 10.2 X10^3/uL (2.0-7.7); Basophil# 0.01 X10^3/uL; Basophil% 0.1 % (0-1); Eosinophil# 0.07 X10^3/uL; Eosinophils% 0.6 % (0-5); Hematocrit 30.5 % (37-47); Hemoglobin 9.8 g/dL (12.0-15.0); Lymphocyte # 0.56 X10^3/ul (4.0); Mean Corp Hgb Conc 32.1 g/dL (32-36); Mean Corpuscular Hgb 28.4 pg (27.0-32.0); Mean Corpuscular Volume 88.4 fL (81-99); Mean Platelet Vol. 8.9 fl (6.2-12.0); Monocyte# 0.42 X10^3/uL; Monocyte% 3.7 % (0-10); NRBC Flagged by Analyzer 0 % (0-5); Neutrophil # 10.19 X10^3/uL (2.7-7.7); Neutrophil % 90.2 % (47-70); POSITIVE DIFFERENTIAL YES; Platelet Count 373 K/mm3 (150-450); RBC Distribution Width SD 47.7 fl (35.1-43.9); Red Blood Count 3.45 M/mm3 (4.2-5.4); White Blood Count 11.3 K/mm3 (4.4-11.0)
[2020-01-21 05:54] LABS: Differential Indicated SCAN CRITERIA MET
[2020-01-21 06:22] LABS: Anion Gap 5 (5-15); BUN 3 mg/dL (7-18); BUN/Creat Ratio 11.2 RATIO (10-20); Calcium,Total 7.8 mg/dL (8.5-10.1); Chloride 100 mmol/L (98-107); Creatinine, Serum 0.27 mg/dL (0.55-1.02); EST Glomerular Filtration Rate 268 mL/min (>60); Est Glom Filt Rate - Afr Amer 325 mL/min (>60); Estimated Creatinine Clearance 40.63 ml/min; Glucose 124 mg/dL (74-106); Potassium 3.5 mmol/L (3.5-5.1); Sodium Level 135 mmol/L (136-145)
[2020-01-21 06:36] VITALS: BP 107/69; PULSE 87; RESP 15; TEMP 37.2; O2SAT 95
[2020-01-21] MEDS: Senna/Docusate Sodium 1 Tablet PO (06:40)
[2020-01-21] MEDS: Polyethylene Glycol 3350 17 GM PACKET PO (06:40)
[2020-01-21 06:41] LABS: Differential Comment SCANNED
[2020-01-21] MEDS: Levothyroxine 25 MCG TABLET PO (06:41)
[2020-01-21] MEDS: Loratadine 10 MG Tablet PO (06:42)
[2020-01-21] MEDS: Multivitamin (Healthy Eyes) Capsule 1 CAP PO (06:42)
[2020-01-21] MEDS: Nitrofurantoin Macrocrystals 100 MG Capsule PO ×2 (06:42→17:45)
[2020-01-21] MEDS: Enoxaparin 40 MG/0.4 ML Syringe SC (06:42)
[2020-01-21] MEDS: Pantoprazole Sodium 40 MG Tablet PO (06:42)
[2020-01-21] MEDS: Menthol/Lanolin/Calamine/Znox 113 GM Tube 1 APPLIC TOPICAL ×2 (06:43→21:46)
[2020-01-21] MEDS: Sucralfate 1 GM Tablet PO ×4 (06:45→21:39)
[2020-01-21] MEDS: Multivitamins,Ther W-Minerals Tablet 1 TABLET PO (07:51)
--- NOTE | 2020-01-21 10:28 | CASEMGMT ---
Social Work Met with patient for initial assessment. Spoke with patient at length about her cancer prognosis, Palliative and Hospice, her wishes for discharge. Provided ongoing emotional and verbal support. Pt stated her is in denial about her prognosis, gets very emotional and does not want her on hospice. They struggle to have open communication about her current state, which upsets her. However, her wishes are hospice. Provided supportive listening. Discussed pt's goals for TCU stay. Pt stated she wanted to see if her body could regain strength, and try for her , but truly she wants to be home and kept comfortable. She reports not being able to eat for awhile, nausea, pain, and miserable. Pt stated she is fair currently. Discussed how her body feels and listening to her body. Validated patient's feelings. Pt states she is active with Palliative. She does not want to go to a nursing facility - her goal is home with hospice. Offered to speak with individually or with her present to help with the hospice conversation. Pt very appreciative. She decided to see how the weekend goes, and SW to follow-up Friday and will determine when to discuss decisions with . Offered continued support. Pt very appreciative of visit. Pt reported to depression and anxiety, and has been in counseling at [facility] for about a year. Her last visit was in July prior to the COVID outbreak. She is agreeable to follow-up after DC. She reports to trying several different medications but she has bad reactions to them. Discussed pt's pentecostal affiliation and pt agreeable to referral to [facility]. Referral made. Will continue to follow. FIDEL Pérez
[2020-01-21] MEDS: Tuberculin,Purif.prot.deriv. 50 TU/ML Vial 5 ML ID (10:30)
[2020-01-21 10:32] VITALS: PULSE 90; RESP 18; O2SAT 96
--- NOTE | 2020-01-21 10:49 | CASEMGMT ---
Social Work Discussed code status with pt. Pt confirmed DNR-CCA, no intubation. MOLST form completed and placed in chart. Lynne Joseph, CLIENT RENEWAL SPECIALIST UTILIZATION COORDINATOR
--- NOTE | 2020-01-21 13:29 | CASEMGMT ---
Social Work Pt asked to speak with SW. Spoke with patient. Pt expressed she felt very supported by previous conversation with SW, and has been thinking about her options and feelings. Discussed options of home with hospice and assistance SW can provide with a conversation with . Provided supportive listening as pt continued to express feelings. Validated pt's feelings. Overall, pt still would like to see how the weekend goes, then revisit and make decision Friday. Will continue to follow. MIRELLA Pérez SW
[2020-01-21 13:49] VITALS: BP 126/84; PULSE 92; RESP 18; TEMP 37; O2SAT 100
--- NOTE | 2020-01-21 14:12 | CHAPLAIN ---
Type of Pastoral Visit _x__ Initial Visit ___ Follow-up Visit ___ On-call Visit ___ General Patient Visit ___ Spiritual Assessment ___ Family Conference ___ Bereavement ___ Rapid Response ___ Code Blue ___ Other (describe below) Pastoral Care Referral From _x__ Patient ___ Family ___ Nurse ___ Physician _x__ Glassworker ___ Wash Plant Operator ___ Other (describe below) Sacrament/Intervention _x__ Active listening ___ Anointing ___ Baptist ___ Bereavement ___ Communion _x__ Sharda exploration ___ _x__ Life review _x__ Prayer ___ Reconciliation ___ Sacrament of Sick _x__ Supportive presence ___ Wedding ___ Other (describe below) Pastoral Comments patient gave detailed account of her last year's health to current status of cancer including the inability to have successful surgery, the likely spread of cancer, and her inability to eat; pt has concerns about communication with spouse over her wishes and SW will be facilitating a conversation for Friday with both; pt expresses interest in hospice care; pt acknowledges fear of dying and some normal spiritual distress with this; pt is open to reconnect with the [employer] in [place] as this is her previous connection to a sharda group; this construction driller will leave a message for [employer] and this construction driller will be available for future spiritual and emotional support for pt; pt welcomes future support and prayer;
[2020-01-21] MEDS: Dext 5%-0.45% NS 1,000 ML 60 ML IV (14:27)
[2020-01-21] MEDS: BMX LIQUID 180 ML 10 ML PO ×2 (17:44→21:44)
[2020-01-21] MEDS: traZODone 50 MG Tablet 100 MG PO (21:39)
[2020-01-22] MEDS: Dext 5%-0.45% NS 1,000 ML 60 ML IV ×2 (05:50→22:19)
[2020-01-22] MEDS: Levothyroxine 25 MCG TABLET PO (05:52)
[2020-01-22] MEDS: Sucralfate 1 GM Tablet PO ×4 (05:52→20:22)
[2020-01-22] MEDS: Enoxaparin 40 MG/0.4 ML Syringe SC (05:52)
[2020-01-22] MEDS: Nitrofurantoin Macrocrystals 100 MG Capsule PO ×2 (05:52→17:01)
[2020-01-22] MEDS: Pantoprazole Sodium 40 MG Tablet PO (05:53)
[2020-01-22] MEDS: Loratadine 10 MG Tablet PO (05:53)
[2020-01-22] MEDS: Multivitamin (Healthy Eyes) Capsule 1 CAP PO (05:53)
[2020-01-22] MEDS: Menthol/Lanolin/Calamine/Znox 113 GM Tube 1 APPLIC TOPICAL ×2 (05:56→20:22)
[2020-01-22 06:01] VITALS: BP 121/71; PULSE 91; RESP 16; TEMP 36.4; O2SAT 96
[2020-01-22] MEDS: Multivitamins,Ther W-Minerals Tablet 1 TABLET PO (08:28)
[2020-01-22 14:45] VITALS: BP 124/72; PULSE 88; RESP 16; TEMP 37.1; O2SAT 98
[2020-01-22] MEDS: PARoxetine 10 MG Tablet PO (17:01)
[2020-01-22] MEDS: oxyCODONE 5 MG Tablet 10 MG PO (20:21)
[2020-01-22] MEDS: traZODone 50 MG Tablet 100 MG PO (20:22)
[2020-01-23 06:04] VITALS: BP 113/66; PULSE 86; RESP 16; TEMP 36.9; O2SAT 94
[2020-01-23] MEDS: Enoxaparin 40 MG/0.4 ML Syringe SC (06:06)
[2020-01-23] MEDS: Sucralfate 1 GM Tablet PO ×4 (06:07→20:25)
[2020-01-23] MEDS: Pantoprazole Sodium 40 MG Tablet PO (06:07)
[2020-01-23] MEDS: Multivitamin (Healthy Eyes) Capsule 1 CAP PO (06:07)
[2020-01-23] MEDS: Levothyroxine 25 MCG TABLET PO (06:07)
[2020-01-23] MEDS: Nitrofurantoin Macrocrystals 100 MG Capsule PO ×2 (06:07→17:03)
[2020-01-23] MEDS: Menthol/Lanolin/Calamine/Znox 113 GM Tube 1 APPLIC TOPICAL ×2 (06:08→20:25)
[2020-01-23] MEDS: Multivitamins,Ther W-Minerals Tablet 1 TABLET PO (08:30)
[2020-01-23 11:04] VITALS: PULSE 88; RESP 18; O2SAT 97
--- NOTE | 2020-01-23 12:19 | NURSING ---
D5-0.[address] Brandon garrett.
[2020-01-23] MEDS: oxyCODONE 5 MG Tablet 10 MG PO (13:10)
[2020-01-23 14:02] VITALS: BP 128/76; PULSE 88; RESP 18; TEMP 37.1; O2SAT 97
[2020-01-23] MEDS: PARoxetine 10 MG Tablet PO (17:03)
[2020-01-23] MEDS: Senna/Docusate Sodium 1 Tablet PO (17:03)
[2020-01-23] MEDS: traZODone 50 MG Tablet 100 MG PO (20:25)
[2020-01-24 02:21] VITALS: BP 124/67; PULSE 80; RESP 16; TEMP 36.5; O2SAT 94
[2020-01-24] MEDS: oxyCODONE 5 MG Tablet 10 MG PO ×3 (02:21→20:09)
[2020-01-24] MEDS: Enoxaparin 40 MG/0.4 ML Syringe SC (04:57)
[2020-01-24] MEDS: Nitrofurantoin Macrocrystals 100 MG Capsule PO ×2 (04:57→17:05)
[2020-01-24] MEDS: Sucralfate 1 GM Tablet PO ×4 (04:57→20:10)
[2020-01-24] MEDS: Levothyroxine 25 MCG TABLET PO (04:58)
[2020-01-24] MEDS: Menthol/Lanolin/Calamine/Znox 113 GM Tube 1 APPLIC TOPICAL ×2 (04:58→20:11)
[2020-01-24] MEDS: Pantoprazole Sodium 40 MG Tablet PO (04:58)
[2020-01-24] MEDS: Multivitamins,Ther W-Minerals Tablet 1 TABLET PO (08:05)
[2020-01-24] MEDS: Multivitamin (Healthy Eyes) Capsule 1 CAP PO (08:06)
--- NOTE | 2020-01-24 09:53 | PHA.CONS_ITS ---
<Jackie Perez M - Last Filed: 01/24/20 09:53> Progress Note - Pharmacy Subjective: TCU ADMISSION Objective: Allergies amoxicillin Adverse Reaction (Severe, Verified 09/06/19 10:03) Unknown ciprofloxacin [From Cipro] Adverse Reaction (Severe, Verified 09/06/19 10:03) Pain in joints prochlorperazine [From Compazine] Adverse Reaction (Severe, Verified 09/06/19 10:03) Swelling UNABALE TO TALK NAUSE/VOMITING Sulfa (Sulfonamide Antibiotics) Adverse Reaction (Severe, Verified 09/06/19 10:03) Rash FEVER atropine Adverse Reaction (Verified 01/20/20 18:16) Swelling Hypoxia, dry mouth and feeling of thick tongue Current Medications Generic Name Dose Route Start Last Admin Trade Name Freq PRN Reason Stop Dose Admin Acetaminophen 1,000 mg 01/20/20 21:51 Tylenol PO Q6H PRN PRN Pain Score 1-3/10 Bisacodyl 10 mg 01/20/20 21:51 Dulcolax RECTAL DAILY PRN Constipation Calamine/Phenol 1 applic 01/21/20 06:00 01/24/20 04:58 Calmoseptine Ointment TOPICAL 1 applicatio 0600,2200 LEATHA Administration Protocol Enoxaparin Sodium 40 mg 01/21/20 06:00 01/24/20 04:57 Lovenox SC 40 mg DAILY@0600 LEATHA Administration Lactobacillus Acidophilus 1 tablet 01/21/20 06:00 01/24/20 04:57 Acidophilus PO 1 tablet DAILY LEATHA Administration Levothyroxine Sodium 25 mcg 01/21/20 06:00 01/24/20 04:58 Synthroid PO 25 mcg DAILY LEATHA Administration Lidocaine/Diphenhydr/Alum/Mg/Simeth 10 ml 01/21/20 15:30 01/21/20 21:44 PO 10 ml Q3H PRN PRN Administration mouth pain Loratadine 10 mg 01/21/20 06:00 01/24/20 04:58 Claritin PO Not Given DAILY LEATHA Lorazepam 1 mg 01/20/20 17:58 Ativan PO BID PRN PRN ANXIETY Multivitamins/Minerals 1 tablet 01/21/20 08:00 01/24/20 08:05 Multivitamin With Minerals (Bkc) PO 1 tablet DAILYCM LEATHA Administration Multivitamins/Minerals 1 capsule 01/23/20 08:00 01/24/20 08:06 Healthy Eyes (Bkc) PO 1 capsule DAILYCM LEATHA Administration Nitrofurantoin Macrocrystals 100 mg 01/20/20 18:00 01/24/20 04:57 Macrobid PO 01/25/20 18:01 100 mg BID LEATHA Administration Oxycodone HCl 10 mg 01/20/20 21:52 01/24/20 02:21 Oxyir PO 01/27/20 21:53 10 mg Q4H PRN PRN Administration Pain Score 4-10/10 Pantoprazole Sodium 40 mg 01/21/20 06:00 01/24/20 04:58 Protonix PO 40 mg DAILY LEATHA Administration Paroxetine HCl 10 mg 01/22/20 18:00 01/23/20 17:03 Paxil PO 10 mg 1800 LEATHA Administration Polyethylene Glycol 17 gm 01/21/20 06:00 01/24/20 04:58 Miralax PO Not Given DAILY LEATHA Potassium Chloride 20 meq 01/24/20 08:00 01/24/20 08:06 K-Dur PO 20 meq DAILYCM LEATHA Administration Senna/Docusate Sodium 1 tablet 01/21/20 06:00 01/24/20 04:58 Senokot-S, Елена-Colace PO Not Given BID [facility] Sodium Chloride 10 - 40 ml 01/20/20 20:07 IV UD PRN SALINE FLUSH Sucralfate 1 gm 01/20/20 22:00 01/24/20 04:57 Carafate PO 1 gm 1HR_ACHS LEATHA Administration Trazodone HCl 100 mg 01/20/20 22:00 01/23/20 20:25 Desyrel PO 100 mg QHS LEATHA Administration Tuberculin PPD 5 tu 01/28/20 10:00 Tubersol, Aplisol, Ppd ID 01/28/20 10:01 X1 ONE Problem List (Last Updated 09/06/19 @ 10:26 by Allie Umanzor) Debility (Acute) Leukopenia (Chronic) Peritoneal metastases (Chronic) Atrophic vaginitis (Chronic) GERD (gastroesophageal reflux disease) (Chronic) Hypothyroidism (Chronic) Insomnia (Chronic) Psychotic disorder (Chronic) Anxiety (Chronic) Vital Signs Temp Pulse Resp BP Pulse Ox 97.7 F L 80 16 124/67 H 94 01/24/20 02:21 01/24/20 02:21 01/24/20 02:21 01/24/20 02:21 01/24/20 02:21 Oxygen Delivery Method Room Air Weight: 48.76 kg Body Mass Index (BMI) 20.2 Sodium 135 mmol/L (136-145) L 01/21/20 05:30 Potassium 3.5 mmol/L (3.5-5.1) 01/21/20 05:30 Chloride 100 mmol/L (98-107) 01/21/20 05:30 Carbon Dioxide 30.0 mmol/L (21.0-32.0) 01/21/20 05:30 Anion Gap 5 (5-15) 01/21/20 05:30 BUN 3 mg/dL (7-18) L 01/21/20 05:30 Creatinine 0.27 mg/dL (0.55-1.02) L 01/21/20 05:30 Est GFR (MDRD) Af Amer 325 mL/min (>60) 01/21/20 05:30 Est GFR (MDRD) Non-Af 268 mL/min (>60) 01/21/20 05:30 BUN/Creatinine Ratio 11.2 RATIO (-) 01/21/20 05:30 Glucose 124 mg/dL (74-106) H 01/21/20 05:30 Assessment/Plan: 1. Pain: Tylenol 1000mg PO Q6h PRN pain 1-3/10, Oxycodone 10mg PO Q4h PRN Pain 4-10/10. Please continue to monitor for increased/decreased pain, PRN medication use. 2. GERD: Carafate 1g PO ACHS, Protonix 40mg PO Daily. Please continue to monitor for improvement in GERD symptoms. 3. DVT Prophylaxis: Lovenox 40mg SC Daily. Please continue to monitor renal function, S/S bleeding/bruising. 4. Hypothyroid: Synthroid 25mg PO Daily. Please continue to monitor for S/S hyper/hypothyroidism. 5. UTI: Macrobid 100mg PO BID thru 01/25/20. Please continue to monitor for symptom improvement, renal function. This is a Beer's [employer] medication, please evaluate use if further therapy is required, thanks. 6. Allergies: Claritin 10mg PO Daily. Please continue to monitor for improvement in allergy symptoms. 7. Hypokalemia: K-Dur 20mEq PO Daily. Please continue to monitor potassium levels. Last K = 3.5 on 01/21/20. 8. General Wellness: Healthy Eye multivitamin 1 cap PO Daily, MVI 1 tab PO Daily, Acidophilus 1 tab PO Daily. Please continue to monitor. Psychotropic Medications: *9. Anxiety: Paxil 10mg PO Daily, Ativan 1mg PO BID PRN. Please consider a GDR by 06/2020 if clinically indicated. *10. Insomnia: Trazodone 100mg PO QHS. Please consider a GDR by 06/2020 if clinically indicated. Unnecessary Medications: None indicated Bowel Regimen: Miralax 17g PO Daily, Senna/Docusate 1 tab PO BID, Dulcolax 10mg Rectal daily PRN. Please continue to monitor for increased/decreased constipation and/or diarrhea. Date of Note:: 01/24/20 - Provider Comments Provider responsibility: Provider responsible to enter orders to implement recommendations <Tano Taylor Chi - Last Filed: 01/24/20 17:26> Progress Note - Pharmacy Subjective: [] Objective: Allergies amoxicillin Adverse Reaction (Severe, Verified 09/06/19 10:03) Unknown ciprofloxacin [From Cipro] Adverse Reaction (Severe, Verified 09/06/19 10:03) Pain in joints prochlorperazine [From Compazine] Adverse Reaction (Severe, Verified 09/06/19 10:03) Swelling UNABALE TO TALK NAUSE/VOMITING Sulfa (Sulfonamide Antibiotics) Adverse Reaction (Severe, Verified 09/06/19 10:03) Rash FEVER atropine Adverse Reaction (Verified 01/20/20 18:16) Swelling Hypoxia, dry mouth and feeling of thick tongue Current Medications Generic Name Dose Route Start Last Admin Trade Name Freq PRN Reason Stop Dose Admin Acetaminophen 1,000 mg 01/20/20 21:51 Tylenol PO Q6H PRN PRN Pain Score 1-3/10 Bisacodyl 10 mg 01/20/20 21:51 Dulcolax RECTAL DAILY PRN Constipation Calamine/Phenol 1 applic 01/21/20 06:00 01/24/20 04:58 Calmoseptine Ointment TOPICAL 1 applicatio 0600,2200 [facility] Administration Protocol Enoxaparin Sodium 40 mg 01/21/20 06:00 07/13/20 04:57 Lovenox SC 40 mg DAILY@0600 LEATHA Administration Lactobacillus Acidophilus 1 tablet 01/21/20 06:00 01/24/20 04:57 Acidophilus PO 1 tablet DAILY LEATHA Administration Levothyroxine Sodium 25 mcg 01/21/20 06:00 01/24/20 04:58 Synthroid PO 25 mcg DAILY LEATHA Administration Lidocaine/Diphenhydr/Alum/Mg/Simeth 10 ml 01/21/20 15:30 01/21/20 21:44 PO 10 ml Q3H PRN PRN Administration mouth pain Loratadine 10 mg 01/21/20 06:00 01/24/20 04:58 Claritin PO Not Given DAILY LEATHA Lorazepam 1 mg 01/20/20 17:58 Ativan PO BID PRN PRN ANXIETY Multivitamins/Minerals 1 tablet 01/21/20 08:00 01/24/20 08:05 Multivitamin With Minerals (Bkc) PO 1 tablet DAILY LEATHA Administration Multivitamins/Minerals 1 capsule 01/23/20 08:00 01/24/20 08:06 Healthy Eyes (Bkc) PO 1 capsule DAILY LEATHA Administration Nitrofurantoin Macrocrystals 100 mg 01/20/20 18:00 01/24/20 17:05 Macrobid PO 01/25/20 18:01 100 mg BID LEATHA Administration Oxycodone HCl 10 mg 01/20/20 21:52 01/24/20 13:11 Oxyir PO 01/27/20 21:53 10 mg Q4H PRN PRN Administration Pain Score 4-10/10 Pantoprazole Sodium 40 mg 01/21/20 06:00 01/24/20 04:58 Protonix PO 40 mg DAILY LEATHA Administration Paroxetine HCl 10 mg 01/22/20 18:00 01/24/20 17:06 Paxil PO 10 mg 1800 LEATHA Administration Polyethylene Glycol 17 gm 01/21/20 06:00 01/24/20 04:58 Miralax PO Not Given DAILY [facility] Potassium Chloride 20 meq 01/24/20 08:00 01/24/20 08:06 K-Dur PO 20 meq DAILY LEATHA Administration Senna/Docusate Sodium 1 tablet 01/21/20 06:00 01/24/20 17:05 Senokot-S, Елена-Colace PO Not Given BID [facility] Sodium Chloride 10 - 40 ml 01/20/20 20:07 IV UD PRN SALINE FLUSH Sucralfate 1 gm 01/20/20 22:00 01/24/20 17:06 Carafate PO 1 gm 1HR_ACHS LEATHA Administration Trazodone HCl 100 mg 01/20/20 22:00 01/23/20 20:25 Desyrel PO 100 mg QHS LEATHA Administration Tuberculin PPD 5 tu 01/28/20 10:00 Tubersol, Aplisol, Ppd ID 01/28/20 10:01 X1 ONE Problem List (Last Updated 09/06/19 @ 10:26 by Allie Umanzor) Debility (Acute) Leukopenia (Chronic) Peritoneal metastases (Chronic) Atrophic vaginitis (Chronic) GERD (gastroesophageal reflux disease) (Chronic) Hypothyroidism (Chronic) Insomnia (Chronic) Psychotic disorder (Chronic) Anxiety (Chronic) Vital Signs Temp Pulse Resp BP Pulse Ox 98.3 F 88 14 127/83 H 98 01/24/20 13:45 01/24/20 13:45 01/24/20 13:45 01/24/20 13:45 01/24/20 13:45 Oxygen Delivery Method Room Air Weight: 48.76 kg Body Mass Index (BMI) 20.2 Sodium 135 mmol/L (136-145) L 01/21/20 05:30 Potassium 3.5 mmol/L (3.5-5.1) 01/21/20 05:30 Chloride 100 mmol/L (98-107) 01/21/20 05:30 Carbon Dioxide 30.0 mmol/L (21.0-32.0) 01/21/20 05:30 Anion Gap 5 (5-15) 01/21/20 05:30 BUN 3 mg/dL (7-18) L 01/21/20 05:30 Creatinine 0.27 mg/dL (0.55-1.02) L 01/21/20 05:30 Est GFR (MDRD) Af Amer 325 mL/min (>60) 01/21/20 05:30 Est GFR (MDRD) Non-Af 268 mL/min (>60) 01/21/20 05:30 BUN/Creatinine Ratio 11.2 RATIO (10-20) 01/21/20 05:30 Glucose 124 mg/dL (74-106) H 01/21/20 05:30 Assessment/Plan: Psychotropic Medications: Unnecessary Medications: Bowel Regimen: - Provider Comments Provider responsibility: Provider responsible to enter orders to implement recommendations Provider Comments to Recommendations by Pharmacy: Agree
--- NOTE | 2020-01-24 13:14 | CASEMGMT ---
Social Work Followed-up with pt on the weekend and pt's current thoughts. Pt reports to even greater loss of appetite and is ready to be home with hospice. Pt requested SW to contact to talk him through her feelings and wishes, then refer to [facility]. Pt would be open to IPU but understands she may not be eligible at this time. Provided emotional support. Spoke with about his feelings, pt's feelings and wishes. emotional - provided support. understands pt is ready for hospice and his ready for her to be home with him. Explained hospice services and SBA, but no physical assist at home. agreeable. Referral made to [facility], estimated DC date 01/25. Will continue to follow. FIDEL PérezW
[2020-01-24 13:45] VITALS: BP 127/83; PULSE 88; RESP 14; TEMP 36.8; O2SAT 98
--- NOTE | 2020-01-24 16:14 | CHAPLAIN ---
Type of Pastoral Visit ___ Initial Visit _x__ Follow-up Visit ___ On-call Visit ___ General Patient Visit ___ Spiritual Assessment ___ Family Conference ___ Bereavement ___ Rapid Response ___ Code Blue ___ Other (describe below) Pastoral Care Referral From _x__ Patient ___ Family ___ Nurse ___ Physician ___ Landfill Grader ___ Campus Security Director ___ Other (describe below) Sacrament/Intervention _x__ Active listening ___ Anointing ___ Christian ___ Bereavement ___ Communion _x__ Sharda exploration ___ ___ Life review _x__ Prayer ___ Reconciliation ___ Sacrament of Sick _x__ Supportive presence ___ Wedding ___ Other (describe below) Pastoral Comments patient has the upcoming conversation with her spouse on her mind; pt very thankful for support of SW for making initial call; pt expresses being helped by literature on Prayer and Scriptures left with her last week; pt is receptive of spiritual support and visits
[2020-01-24] MEDS: PARoxetine 10 MG Tablet PO (17:06)
[2020-01-24] MEDS: traZODone 50 MG Tablet 100 MG PO (20:10)
[2020-01-25 04:23] VITALS: BP 100/57; PULSE 86; RESP 15; TEMP 36.8; O2SAT 95
[2020-01-25] MEDS: Enoxaparin 40 MG/0.4 ML Syringe SC (06:39)
[2020-01-25] MEDS: Nitrofurantoin Macrocrystals 100 MG Capsule PO ×2 (06:40→16:39)
[2020-01-25] MEDS: Pantoprazole Sodium 40 MG Tablet PO (06:40)
[2020-01-25] MEDS: Levothyroxine 25 MCG TABLET PO (06:40)
[2020-01-25] MEDS: Loratadine 10 MG Tablet PO (06:40)
[2020-01-25] MEDS: Menthol/Lanolin/Calamine/Znox 113 GM Tube 1 APPLIC TOPICAL ×2 (06:41→20:57)
[2020-01-25] MEDS: Sucralfate 1 GM Tablet PO ×4 (06:43→20:53)
[2020-01-25] MEDS: Multivitamins,Ther W-Minerals Tablet 1 TABLET PO (08:10)
[2020-01-25] MEDS: Multivitamin (Healthy Eyes) Capsule 1 CAP PO (08:10)
[2020-01-25] MEDS: Acetaminophen 500 MG Tablet 1000 MG PO (10:27)
[2020-01-25 14:29] VITALS: BP 108/72; PULSE 93; RESP 16; TEMP 36.7; O2SAT 96
--- NOTE | 2020-01-25 14:53 | CASEMGMT ---
Social Work Spoke with pt and answered further questions about hospice and DC. Provided emotional support. Pt requesting to DC home with hospice 01/26. Notified [facility] whom will deliver DME to home 01/26. Scheduled cot transport with Physician's at 2 pm Plan: DC home with and [facility] 01/26. FIDEL PérezW
[2020-01-25] MEDS: PARoxetine 10 MG Tablet PO (16:39)
--- NOTE | 2020-01-25 16:56 | NURSING ---
Addendum entered by Elsi Steele 01/25/20 17:32: DC [facility]. IMODIUM BID. R' UPDATED. Original Note: NOTIFIED DR. TAYLOR OF [facility] T/O DAY. ALSO, R' REQUESTING APPETITE STIMULANT. N.O. FOR [facility] AND REMERON. WILL UPDATE R'.
[2020-01-25] MEDS: Loperamide 2 MG Capsule PO (17:31)
[2020-01-25] MEDS: Mirtazapine 15 MG Tablet 7.5 MG PO (20:53)
[2020-01-25] MEDS: oxyCODONE 5 MG Tablet 10 MG PO (20:53)
[2020-01-25] MEDS: traZODone 50 MG Tablet 100 MG PO (20:54)
--- NOTE | 2020-01-25 21:18 | PCM.DC ---
- Discharge Diagnoses Current Active Problems: Current Active and Chronic Problems (Last Updated 09/06/19 @ 10:26 by Allie Umanzor) Debility (Acute) Leukopenia (Chronic) Peritoneal metastases (Chronic) Atrophic vaginitis (Chronic) GERD (gastroesophageal reflux disease) (Chronic) Hypothyroidism (Chronic) Insomnia (Chronic) Psychotic disorder (Chronic) Anxiety (Chronic) You will use the following diet at home:: No restrictions, Regular Your food should be the consistency of: Regular Your liquids should be the consistency of: Regular/Thin Discharge Activity: Return to Normal Activity, May Shower, Use Walker Weight Bearing Status: Weight bearing as tolerated Call your doctor if you observe: Fever of 101 or Higher, Inability to urinate, Inability to have a bowel movement, Shortness of breath, Chest pain, Uncontrolled pain Allergies/Adverse Reactions: Allergies amoxicillin Adverse Reaction (Severe, Verified 09/06/19 10:03) Unknown ciprofloxacin [From Cipro] Adverse Reaction (Severe, Verified 09/06/19 10:03) Pain in joints prochlorperazine [From Compazine] Adverse Reaction (Severe, Verified 09/06/19 10:03) Swelling UNABALE TO TALK NAUSE/VOMITING Sulfa (Sulfonamide Antibiotics) Adverse Reaction (Severe, Verified 09/06/19 10:03) Rash FEVER atropine Adverse Reaction (Verified 01/20/20 18:16) Swelling Hypoxia, dry mouth and feeling of thick tongue Medications to take at Discharge Levothyroxine [Synthroid] 25 mcg PO DAILY 08/10/18 traZODone [Desyrel] 100 mg PO QHS 08/10/18 Dicyclomine HCl [Bentyl] 10 mg PO TIDAC 01/20/20 Loperamide HCl [Imodium A-D] 2 mg PO Q12H PRN PRN 01/20/20 Loratadine [Claritin] 10 mg PO DAILY 01/20/20 Acetaminophen [Tylenol] 1,000 mg PO Q6H PRN PRN tablet 01/25/20 Dicyclomine HCl [Bentyl] 10 mg PO TIDAC #90 cap 01/25/20 Loperamide [Imodium] 2 mg PO BID #60 cap 01/25/20 Menthol/Lanolin/Calamine/Znox [Calmoseptine Ointment] 1 applic TOPICAL 0600,2200 tube 07/14/20 Mirtazapine [Remeron] 7.5 mg PO QHS #30 tab 01/25/20 Oxycodone HCl [Roxicodone] 10 mg PO Q6H PRN PRN 7 Days #56 tablet 01/25/20 Pantoprazole Sodium [Protonix] 40 mg PO DAILY #30 tab 01/25/20 Paroxetine [Paxil] 10 mg PO 1800 #30 tab 01/25/20 Polyethylene Glycol 3350 [Miralax] 17 gm PO DAILY #30 packet 01/25/20 Potassium Chloride 20 meq PO DAILY #30 packet 01/25/20 Senna/Docusate Sodium [Senokot-S] 1 tab PO BID #60 tab 01/25/20 The following prescriptions were given: Dicyclomine HCl [Bentyl] 10 mg PO TIDAC #90 cap Transmission Status: Pending to [facility] Loperamide [Imodium] 2 mg PO BID #60 cap Transmission Status: Pending to [facility] Polyethylene Glycol 3350 [Miralax] 17 gm PO DAILY #30 packet Transmission Status: Pending to [facility] Paroxetine [Paxil] 10 mg PO 1800 #30 tab Transmission Status: Pending to [facility] Potassium Chloride 20 meq PO DAILY #30 packet Transmission Status: Pending to [facility] Pantoprazole Sodium [Protonix] 40 mg PO DAILY #30 tab Transmission Status: Pending to [facility] Mirtazapine [Remeron] 7.5 mg PO QHS #30 tab Transmission Status: Pending to [facility] Oxycodone HCl [Roxicodone] 10 mg PO Q6H PRN PRN 7 Days #56 tablet PRN Reason: Pain Or Fever Transmission Status: Sent to [facility] Senna/Docusate Sodium [Senokot-S] 1 tab PO BID #60 tab Transmission Status: Pending to [facility] Primary Care Physician: Derick Hansen DO [Primary Care Provider] - Please follow up with your Primary Care Physician in: As needed. Test Results: Test results from this visit will be discussed in further detail at your follow-up appointment, if applicable. Please Follow Up With: Santino Alvarez When: N/A. Please Follow Up With: Kylah Vasquez APRN, [employer] H[employer]SE HITCH DRIVER When: N/A. Proposed Discharge Date: 01/27/20
--- NOTE | 2020-01-25 21:19 | DS.PCM_ITS ---
Discharge Date and Diagnosis - Problem List Patient Problems: Active and Suspected Problems (Last Updated 09/06/19 @ 10:26 by Allie Umanzor) Debility (Acute) Date of Admission: 01/20/20 Date of Discharge: 01/27/20 - Primary Discharge Diagnosis Acute Problems: Active Problems (Last Updated 09/06/19 @ 10:26 by Allie Umanzor) Debility (Acute) - Secondary Discharge Diagnosis Chronic Problems: Chronic Problems (Last Updated 09/06/19 @ 10:26 by Allie Umanzor) Leukopenia (Chronic) Peritoneal metastases (Chronic) Atrophic vaginitis (Chronic) GERD (gastroesophageal reflux disease) (Chronic) Hypothyroidism (Chronic) Insomnia (Chronic) Psychotic disorder (Chronic) Anxiety (Chronic) Hospital Course and Treatment Imaging Results: 01/20/20 18:04 Diet: Regular Diet Food consistency:: Regular Liquid Consistency:: Regular/Thin Clinical Impression(s) from Imaging Studies [facility] X-Ray 01/20/20 18:03 IMPRESSION: Air-filled mildly dilated loops of small and large bowel which is likely due to ileus. Electronically Signed: Bart Griffin, at 19:39 EDT Tel , Service support , Operations: None Procedures: None Summary of Care Provided: The patient is a 69 year old Female with below past medical history significant for metastatic pancreatic cancer, underwent Whipple procedure 01/13/2020, admitted to TCU with debility, here for rehabilitation, strengthening, prior to discharge home with hospice. Discharge home with , [facility]. Patient Problems: Active and Suspected Problems (Last Updated 09/06/19 @ 10:26 by Allie Umanzor) Debility (Acute) - Physical Exam Vitals/I&O's: Vital Signs Temp Pulse Resp BP Pulse Ox 98.1 F 93 16 108/72 96 01/25/20 14:29 01/25/20 14:29 01/25/20 14:29 01/25/20 14:29 01/25/20 14:29 Oxygen Delivery Method Room Air Weight: 44.509 kg Body Mass Index (BMI) 20.2 Intake and Output for Last 24 Hours 01/23/20 01/24/20 01/25/20 23:59 23:59 23:59 Intake Total 1321 / 1321 360 / 360 360 / 360 Balance 1321 / 1321 360 / 360 360 / 360 Current Medications Acetaminophen (Tylenol) 1,000 mg PO Q6H PRN PRN PRN Reason: Pain Score 1-3/10 Last Admin: 01/25/20 10:27 Dose: 1,000 mg Documented by: Bisacodyl (Dulcolax) 10 mg RECTAL DAILY PRN PRN Reason: Constipation Calamine/Phenol (Calmoseptine Ointment) 1 applic TOPICAL 0600,2200 [facility]; Protocol Last Admin: 01/25/20 20:57 Dose: 1 applicatio Documented by: Dicyclomine HCl (Bentyl) 10 mg PO TIDAC [facility] Enoxaparin Sodium (Lovenox) 40 mg SC DAILY@0600 [facility] Last Admin: 01/25/20 06:39 Dose: 40 mg Documented by: Lactobacillus Acidophilus (Acidophilus) 1 tablet PO DAILY [facility] Last Admin: 01/25/20 06:40 Dose: 1 tablet Documented by: Levothyroxine Sodium (Synthroid) 25 mcg PO DAILY [facility] Last Admin: 01/25/20 06:40 Dose: 25 mcg Documented by: Lidocaine/Diphenhydr/Alum/Mg/Simeth () 10 ml PO Q3H PRN PRN PRN Reason: mouth pain Last Admin: 01/21/20 21:44 Dose: 10 ml Documented by: Loperamide HCl (Imodium) 2 mg PO BID [facility] Last Admin: 01/25/20 17:31 Dose: 2 mg Documented by: Loratadine (Claritin) 10 mg PO DAILY [facility] Last Admin: 01/25/20 06:40 Dose: 10 mg Documented by: Lorazepam (Ativan) 1 mg PO BID PRN PRN PRN Reason: ANXIETY Mirtazapine (Remeron) 7.5 mg PO QHS [facility] Last Admin: 01/25/20 20:53 Dose: 7.5 mg Documented by: Multivitamins/Minerals ([facility] With [facility] ([facility])) [facility] Admin: 01/25/20 08:10 Dose: 1 tablet Documented by: Multivitamins/Minerals (Healthy Eyes (Bkc)) [facility] Last Admin: 01/25/20 08:10 Dose: 1 capsule Documented by: Oxycodone HCl (Oxyir) 10 mg PO Q4H PRN PRN PRN Reason: Pain Score 4-10/10 Stop: 01/27/20 21:53 Last Admin: 01/25/20 20:53 Dose: 10 mg Documented by: Pantoprazole Sodium (Protonix) 40 mg PO DAILY [facility] Last Admin: 01/25/20 06:40 Dose: 40 mg Documented by: Paroxetine HCl (Paxil) 10 mg PO 1800 [facility] Last Admin: 01/25/20 16:39 Dose: 10 mg Documented by: Polyethylene Glycol (Miralax) 17 gm PO DAILY [facility] Last Admin: 01/25/20 06:42 Dose: Not Given Documented by: Potassium Chloride (K-Dur) 20 meq PO DAILYCM [facility] Last Admin: 01/25/20 08:10 Dose: 20 meq Documented by: Senna/Docusate Sodium (Senokot-S, Елена-Colace) 1 tablet PO BID [facility] Last Admin: 01/25/20 15:18 Dose: Not Given Documented by: Sodium Chloride () 10 - 40 ml IV UD PRN PRN Reason: SALINE FLUSH Sucralfate (Carafate) 1 gm PO 1HR_ACHS [facility] Last Admin: 01/25/20 20:53 Dose: 1 gm Documented by: Trazodone HCl (Desyrel) 100 mg PO QHS [facility] Last Admin: 01/25/20 20:54 Dose: 100 mg Documented by: Tuberculin PPD (Tubersol, Aplisol, Ppd) 5 tu ID [id number] Stop: 01/28/20 10:01 Discharge Diet: No Restrictions Discharge Activity: Return to Normal Activity, May Shower, Use Walker Weight Bearing Status: Weight bearing as tolerated Call your doctor if you observe: Fever of 101 or Higher, Inability to urinate, Inability to have a bowel movement, Shortness of breath, Chest pain, Uncontrolled pain Home Medications: Medications to take at Discharge Levothyroxine [Synthroid] 25 mcg PO DAILY 08/10/18 traZODone [Desyrel] 100 mg PO QHS 08/10/18 Dicyclomine HCl [Bentyl] 10 mg PO TIDAC 01/20/20 Loperamide HCl [Imodium A-D] 2 mg PO Q12H PRN PRN 01/20/20 Loratadine [Claritin] 10 mg PO DAILY 01/20/20 Acetaminophen [Tylenol] 1,000 mg PO Q6H PRN PRN tablet 01/25/20 Dicyclomine HCl [Bentyl] 10 mg PO TIDAC #90 cap 01/25/20 Loperamide [Imodium] 2 mg PO BID #60 cap 01/25/20 Menthol/Lanolin/Calamine/Znox [Calmoseptine Ointment] 1 applic TOPICAL 0600,2200 tube 01/25/20 Mirtazapine [Remeron] 7.5 mg PO QHS #30 tab 01/25/20 Oxycodone HCl [Roxicodone] 10 mg PO Q6H PRN PRN 7 Days #56 tablet 01/25/20 Pantoprazole Sodium [Protonix] 40 mg PO DAILY #30 tab 01/25/20 Paroxetine [Paxil] 10 mg PO 1800 #30 tab 01/25/20 Polyethylene Glycol 3350 [Miralax] 17 gm PO DAILY #30 packet 01/25/20 Potassium Chloride 20 meq PO DAILY #30 packet 01/25/20 Senna/Docusate Sodium [Senokot-S] 1 tab PO BID #60 tab 01/25/20 Following Prescrptions Were Given to Patient: Dicyclomine HCl [Bentyl] 10 mg PO TIDAC #90 cap Transmission Status: [facility] Loperamide [Imodium] 2 mg PO BID #60 cap Transmission Status: Pending to [facility] Polyethylene Glycol 3350 [Miralax] 17 gm PO DAILY #30 packet Transmission Status: Pending to [facility] Paroxetine [Paxil] 10 mg PO 1800 #30 tab Transmission Status: P[facility] to [facility] Potassium Chloride 20 meq PO DAILY #30 packet Transmission Status: Pending to [facility] Pantoprazole Sodium [Protonix] 40 mg PO DAILY #30 tab Transmission Status: Pending to [facility] Mirtazapine [Remeron] 7.5 mg PO QHS #30 tab Transmission Status: P[facility] Oxycodone HCl [Roxicodone] 10 mg PO Q6H PRN PRN 7 Days #56 tablet PRN Reason: Pain Or Fever Transmission Status: [facility] to [facility] Senna/Docusate Sodium [Senokot-S] 1 tab PO BID #60 tab Transmission Status: Pending to [facility] Primary Care Physician: Derick Hansen DO [Primary Care Provider] - Please follow up with your Primary Care Physician in: As needed. Please Follow Up With: Santino Alvarez When: N/A. Please Follow Up With: Kylah Vasquez APRN, CNS When: N/A. Disposition: Home with Hospice Minutes spent on discharge:: 35 Patient Condition:: Poor Medical Necessity - Tobacco Use Smoking Status: Never smoker Tobacco Use: Non-smoker Meaningful Use Info Meaningful Use Diagnoses (Choose all that apply): None applicable
[2020-01-26 04:42] VITALS: BP 101/51; PULSE 94; RESP 17; TEMP 36.9; O2SAT 95
[2020-01-26] MEDS: Enoxaparin 40 MG/0.4 ML Syringe SC (04:44)
[2020-01-26] MEDS: Loperamide 2 MG Capsule PO (04:45)
[2020-01-26] MEDS: Loratadine 10 MG Tablet PO (04:45)
[2020-01-26] MEDS: Pantoprazole Sodium 40 MG Tablet PO (04:45)
[2020-01-26] MEDS: oxyCODONE 5 MG Tablet 10 MG PO ×3 (04:45→20:56)
[2020-01-26] MEDS: Dicyclomine 10 MG Capsule PO ×3 (04:45→17:45)
[2020-01-26] MEDS: Levothyroxine 25 MCG TABLET PO (04:45)
[2020-01-26] MEDS: Menthol/Lanolin/Calamine/Znox 113 GM Tube 1 APPLIC TOPICAL ×2 (04:53→20:57)
--- NOTE | 2020-01-26 06:52 | NURSING ---
Pt requesting all unnecessary meds be D/C. Pt stating I am going home on hospice and I hate taking pills. Informed pt that Dr. Taylor would be updated on pts request. Pt seemed to be down. 1:1 was provided and was affective. Pt thanked this nurse for talking with her.
--- NOTE | 2020-01-26 11:50 | NURSING ---
Resident unable to urinate all this AM. Assisted to bathroom to try and unable. Reports increased abdominal discomfort. States it has been getting harder and harder to urinate since surgery. Bladder scanned for [address] Taylor notified of this and he orders Alves catheter to be inserted. Resident aware and agreeable to this.
--- NOTE | 2020-01-26 12:05 | CASEMGMT ---
Social Work IDT met with patient and via conference call for care plan meeting. Discussed patient's progress in therapy. Pt is supervision for transfers, bed mobility,toileting, walking 40-50 ft with FWW, SBA for showers, SBA for dressing. Pt prefers to lay in bed than sit for comfort and fatigues after ambulation. Pt is on a regular diet, very poor to no appetite. Remeron has been started, and pt has lost weight. Pt will DC home with on [facility] 01/26. Pt is complaining on trouble urinating. Physician ordered catheter - will DC home with cath. Lynne Joseph, [employer] WORK[employer]
--- NOTE | 2020-01-26 12:10 | NURSING ---
After catheter insertion, resident not wanting to eat lunch. Is wanting to rest through abdominal discomfort. Bentyl and Oxyir given prior to catheter insertion.
[2020-01-26] MEDS: Acetaminophen 500 MG Tablet 1000 MG PO (14:27)
[2020-01-26 14:59] VITALS: BP 99/64; PULSE 93; RESP 14; TEMP 36.1; O2SAT 96
[2020-01-26] MEDS: PARoxetine 10 MG Tablet PO (17:46)
[2020-01-26] MEDS: traZODone 50 MG Tablet 100 MG PO (20:58)
[2020-01-26] MEDS: Mirtazapine 15 MG Tablet 7.5 MG PO (20:58)
[2020-01-27 06:30] VITALS: BP 102/62; PULSE 120; RESP 16; TEMP 37.6; O2SAT 96
[2020-01-27] MEDS: Pantoprazole Sodium 40 MG Tablet PO (06:32)
[2020-01-27] MEDS: Dicyclomine 10 MG Capsule PO ×2 (06:32→11:45)
[2020-01-27] MEDS: Menthol/Lanolin/Calamine/Znox 113 GM Tube 1 APPLIC TOPICAL (06:32)
[2020-01-27] MEDS: oxyCODONE 5 MG Tablet 10 MG PO ×2 (08:24→12:40)
--- NOTE | 2020-01-27 10:58 | NURSING ---
Contacted Dr. Santino Alvarez's office asking when the sutures to the patients abdomen can be removed. Waiting for return call.
[2020-01-27] MEDS: Acetaminophen 500 MG Tablet 1000 MG PO (12:06)
[2020-01-27] MEDS: Ondansetron ODT 4 MG Tablet 8 MG PO (12:37)
[2020-01-27 13:36] VITALS: BP 100/61; PULSE 115; RESP 14; TEMP 36.5; O2SAT 95
[2020-01-27 15:17] VITALS: BP 100/61; PULSE 115; RESP 14; TEMP 36.5; O2SAT 95
--- NOTE | 2020-01-31 11:58 | MDS.RN ---
Information for the mds was obtained from review of the clinical record, interview of resident, staff, and direct observation of resident's care.
== END 2020-01-27 14:20 | disposition hospice, home (50) | DRG 436 ==
PROVIDERS: Admitting Provider Family Medicine Geriatric Medicine; PCP Family Medicine; Visit Provider Family Medicine Geriatric Medicine
DX: C25.0 Malignant neoplasm of head of pancreas (principal); C78.6 Secondary malignant neoplasm of retroperitoneum and peritoneum; N39.0 Urinary tract infection, site not specified; K21.9 Gastro-esophageal reflux disease without esophagitis; E03.9 Hypothyroidism, unspecified; F41.9 Anxiety disorder, unspecified; F32.9 Major depressive disorder, single episode, unspecified; E55.9 Vitamin D deficiency, unspecified; H35.30 Unspecified macular degeneration; E87.6 Hypokalemia; F20.9 Schizophrenia, unspecified; K52.9 Noninfective gastroenteritis and colitis, unspecified
CPT/HCPCS: 36415; 74018; 80048; 85025; 87635; 92507; 92523; 97110; 97116; 97162; 97166; 97530; 97535; 97802; G2023; J7799; U0003